=== PATIENT | male | born 1950 | race Caucasian/White ===

== ENCOUNTER 2018-11-15 07:40 | Inpatient (IN) | payer MEDICARE ==
[~2018-11-15] VITALS: Ht 165.1 cm; Wt 59.0 kg
--- NOTE | 2018-11-15 12:40 | NUR ---
PT ADMITTED FROM ED FOR CHOLECYSTITIS AND PANCREATITIS. PT HAS SON (POA) AND DAUGHTER AT BEDSIDE AT THIS TIME. PT STATES THAT HE IS HAVING RUQ PAIN 8/10. PT DECLINES NAUSEA/VOMITING AT THIS TIME. MOUTH SWABS AND ICE CHIPS PROVIDED FOR COMFORT, NPO. IV FLUIDS HANGING. PT HAS ACTIVE BOWEL SOUNDS BUT TENDER TO THE TOUCH ON THE RUQ AND RLQ. IN ROOM DISCUSSING PLAN OF CARE. PT HAS NO NEEDS/CONCERNS AT THIS TIME.
--- NOTE | 2018-11-15 13:53 | NUR ---
PT CALLED IN 10\10 PAIN. ADMINISTERED 4MG IV MORPH. INSTRUCTED TO CALL IN 10-15 MINUTES IF IT HASNT TAKEN THE PAIN LEVEL DOWN. FAMILY IN ROOM. EKG IN PROGRESS.
--- NOTE | 2018-11-15 14:55 | NUR ---
PT STATES THAT HE IS HAVING 9/10 PAIN AND WOULD LIKE MORPHINE. MORPHINE PROVIDED. PT SON AT BEDSIDE. PT ALERT AND ORIENTED X3. NO FURTHER NEEDS/CONCERNS AT THIS TIME. CALL LIGHT WITHIN REACH.
--- NOTE | 2018-11-15 15:29 | NUR ---
PT CALLED AND STATED THE MORPH DID NOT DO ANYTHING THIS LAST TIME. ADMINISTERED 6MG AGAIN. WILL SEE IF AFTER A COUPLE OF DOSES IT COMES DOWN. WILL CALL DR IF IT DOES NOT.
--- NOTE | 2018-11-15 16:15 | NUR ---
PT STATES THAT HIS PAIN HAS DECREASED, WILL LET NURSE KNOW IF PAIN INCREASES. EDUCATED PT ON CALLING STAFF TO MEASURE URINE. PT STATES AN UNDERSTANDING. PT RESTING IN BED WITH SON AT BEDSIDE. NO NEEDS/CONCERNS AT THIS TIME. CALL LIGHT WITHIN REACH.
--- NOTE | 2018-11-15 16:29 | EKG ---
[facility] [address] [facility] [place] [address] Signed Sinus rhythm with premature supraventricular complexes Low voltage QRS Prolonged QT Abnormal ECG No previous ECGs available Confirmed by ROSEY FRANCOIS MD ([id number]) on 11/15/2018 4:29:13 PM Electronically Signed By: ROSEY FRANCOIS MD 11/15/18 1629 PATIENT NAME: SKY ADAMSON LARISA Electrocardiogram DATE OF : 46 PHYSICIAN: ROSEY FRANCOIS MD REPORT #: [id number] REPORT IS CONFIDENTIAL AND NOT TO BE RELEASED WITHOUT AUTHORIZATION
--- NOTE | 2018-11-15 17:43 | NUR ---
ANSWERED PT CALL LIGHT. PT STATES THAT HIS PAIN IS AN 8/10. 6MG OF MORPHINE ADMINISTERED. DR. LEBLANC NOTIFIED OF MORPHINE NOT BEING EFFECTIVE. NO NEW ORDERS AT THIS TIME. PT RESTING QUIETLY WITH DAUGHTER AND EX- AT BEDSIDE.
--- NOTE | 2018-11-15 18:34 | NUR ---
PT SAT ON THE SIDE OF THE BED USING A URINAL. PT URINATED 150ML OF DARK YELLOW URINE. PT HAS NO OTHER NEEDS/CONCERS AT THIS TIME. CALL LIGHT WITHIN REACH. PT REPOSITIONED IN BED.
--- NOTE | 2018-11-15 19:42 | NUR ---
pt medicated with Morphine 6mg IV c/o abd pain 11/29 RUQ. Sats 82% on room air, O2 2L NC applied, up to 92% after a few minutes. staying at 91-93% after having o2 and cdb. will continue to observe. family in room
--- NOTE | 2018-11-15 20:59 | NUR ---
Dr Hayden notified personally about above note. new orders received. Pt drowsy, resting, eys closed, cpox in place, sats 92% on room air
--- NOTE | 2018-11-15 21:39 | NUR ---
EQUIPMENT OPERAT0R MORPHINE STARTED, PT AND DAUGHTER INSTRUCTED ON USAGE. AND THAT THE PATIENT IS THE DO WHO SHOULD BE PUSHING THE PAIN MED BUTTON. BOTH STATED UNDERSTANDING. PT COOP WITH ASSESSMENT. JAUNDICED SKIN, C/O ABD PAIN. TENDER TO TOUCH. IVF INFUSING W/O RPOBLEMS, NO C/O ADVERSE REACTION TO ABX. O2 2L NC, CPOX IN PLACE 2L/NC IN PLACE, SATS 93%. CONTINUES ON NPO STATUS. CALL LIGHT AT HANDS REACH. FAMILY IN ROOM
--- NOTE | 2018-11-15 22:41 | NUR ---
Medicated with Dilaudid 0.5mg IV per abd pain/generalized pain.
--- NOTE | 2018-11-15 23:05 | NUR ---
reposition patient up in bed.
--- NOTE | 2018-11-16 00:52 | NUR ---
RESTING, NO DISTRESS, CPOX IN PLACE, 93%, O2 2L NC IN PLACE, SECURITY GUARDS DISPATCHER INFUSING W GOOD PAIN CONTROL. ON CIWA, OBSERVE FOR S/SX ETOH WITHDRAWAL. GETS VALIUM TID CALL LIGHT AT BEDSIDE, FAMILY IN ROOM
--- NOTE | 2018-11-16 02:45 | NUR ---
pt dry heaving, visible tremors present, medicated with Zofran 8mg IV. Pt up to br, unsteady gait, follows instructions after several cues. skin jaundiced, unmeasurable void of clear urine. Back to bed. O2 2L on, CPOx in place, sats 96%. Bed alarm on, cll light at bedside, NPO,CIWA score 7. family rooming in
--- NOTE | 2018-11-16 03:42 | NUR ---
PULLED PATIENT UP IN BED REPOSITIONED
--- NOTE | 2018-11-16 03:46 | NUR ---
REPOSITIONED IN BED, NO FURTHER C/O DRY HEAVINH, NO VISIBLE TREMORS NOTED, STILL ANXIOUS, USING VERMIN EXTERMINATOR MORPHINE WITH FAIR ABD PAIN RESULTS. BED ALARM ON, CALL LIGHT AT BEDSIDE, DAUGHTER IN ROOM
--- NOTE | 2018-11-16 05:52 | NUR ---
PT CURRENTLY SANDRA, RESINT, NO DISTRESS, NO AGITATION, NO TREMORS. CIWA SCORE AT THIS TIME 2. PT RECEIVED SCHEDULE 2.5MG IV VALIUM. NO N/V, RECEIVED ZOFRAN 8MG IV EARLIER WITH FAIR RELIEF, NO EMESIS. CONTINUES TO C.O ABD PAIN, HAS MORPHINE PROCESS EXCELLENCE MANAGER WITH GOOD TO FAIR RESULTS. NO C/O ADVERSE REACTION TO ABX IV. WAS INCONTINENT OF URINE X1 AND USES URINAL SEVERL TIMES, VOIDING QS THIS SHIFT. IS NPO WITH MOUTH CARE DONE. HAS BEEN COOPERATIVE, CALM AT THIS TIME BUT VERY ANXIOUS, CONFUSED AND RESTLESS MID SHIFT AFTER RECEIVING VALIUM. CALMER AT THIS TIME, ORIENTED TO PLACE, SELF AND SITUATION. MOVES AROUND IN BED, HAS O2 2L NC HIS SAT DROPPED LAST NIGHT, CPOX IN PLACE WITH SATS AT 92-95%, NO RESP DISTRESS, FAMILY IN ROOM
--- NOTE | 2018-11-16 07:33 | NUR ---
0700: Bedside report recieved from Gloria PAVON. Pt laying in bed and apprears comfortable at this time, and he denies any new problems. Call asencio within reach. Pt's daughter in the room.
--- NOTE | 2018-11-16 08:40 | NUR ---
LAB RESULTS WILL BE CALLED TO DR LEBLANC.
--- NOTE | 2018-11-16 08:43 | NUR ---
PT RESTING IN BED AND HAD STATED HIS PAIN WAS A 9 AND HE PUSHED HIS COMMERCIAL AGENT BUTTON. HE NOW STATES HIS IMPROVING. HE DENIES ANY OTHER NEW PROBLEMS. HIS CURRENT CIWA SCORE IS A 0, [facility] PT INSTRUCTED TO CALL BEFORE GETTING OUT OF BED AND THE PT'S DAUGHTER IS IN THE ROOM AND STATES SHE WILL ALSO CALL OF ANY SIGNS OF AN INCREASING CIWA SCORE.
--- NOTE | 2018-11-16 08:57 | NUR ---
DR FRANCOIS CAME INTO THE PT'S ROOM AND SAW THE PT SHE IS AWARE OF THE PT'S LABS AND STATES THAT THERE IS NO NEED TO CALL DR LEBLANC IN THIS REGARD.
--- NOTE | 2018-11-16 09:54 | NUR ---
Pt up ambulating in the halls with physical therapy at this time. Pt voided 150 ml of dark yellow urine prior to his walk.
--- NOTE | 2018-11-16 10:14 | NUR ---
PT STATES HIS PAIN IS UNDER CONTROL AND THAT HE IS GETTING "A LITTLE TIRED NOW".
--- NOTE | 2018-11-16 11:15 | NUR ---
Pt ambulating in the halls with the GRAVURE PRESS OPERATOR at this time.
--- NOTE | 2018-11-16 11:52 | NUR ---
PATIENT WAS ABLE TO SHOWER ON HIS OWN. AGENCY RECRUITER STOOD OUTSIDE DOOR INCASE PATIENT WAS IN NEED OF ASSISTANCE. HE IS NOW SITTING IN CHAIR. PATIENT ALSO WALK A LAP AROUND MED/SURG.
--- NOTE | 2018-11-16 12:25 | NUR ---
PT RESTING IN HIS CHAIR VISITING WITH HIS FAMILY. HE STATES HE IS DOING WELL AND DENIES PAIN. SAT IS 96% ON 2L VIA NC. CIWA IS A 0 AT THIS TIME.
--- NOTE | 2018-11-16 15:54 | NUR ---
Pt resting in his bed visiting with his family and he denies any pain or problems.
--- NOTE | 2018-11-16 17:34 | NUR ---
PT STATES HE HAS ABD PAIN RATED AT AN 8-9/10, PT PUSHED IS MS ACUPRESSURIST AT THIS TIME. DR LEBLANC ARRIVED TO THE PT'S ROOM AND IS SPEAKING WITH HIM AND HIS FAMILY AT THIS TIME.
--- NOTE | 2018-11-16 17:37 | NUR ---
PT HAS NOT VOIDED FOR THE LAST 4 HOURS, DR LEBLANC NOTIFIED AND NEW ORDERS RECIEVED.
--- NOTE | 2018-11-16 18:36 | NUR ---
PT LYING IN HIS BED AND IS USING HIS CARRY OUT CLERK WITH MS FOR ABD PAIN. THE PLAN IS TO CONTINUE TO TREAT HIS PANCREATITIS WITH FLUIDS AND ABX UNTIL UNDER CONTROL ENOUGH FOR HIM TO HAVE HIS GALLBLADDER OUT. HIS URINE IS VERY DARK AND HIS BILIRUBIN IS ELEVATED. HIS URINE OUTPUT HAS BEEN LOW AND HE IS CURRENTLY RECEIVING A FLUID BOLUS DUE TO THIS. PT HAS A HISTORY OF ETOH AND IS RECEIVING ETOH WITHDRAW ASSESSMENTS AND SCHEDULED VALIUM DOSES AND HE HAS PRN DOSES WHICH HAVE NOT BEEN NEEDED THIS SHIFT. ANABELLA HAS BEEN IN THE ROOM WITH THE PT ALL DAY. PT NPO OTHER THAN PRN ICE CHIPS.
--- NOTE | 2018-11-16 18:44 | NUR ---
FLUID BOLUS COMPLETED, PT TOLERATED IT WELL.
--- NOTE | 2018-11-16 18:45 | NUR ---
SAT IS 93% on 2l NC at this time.
--- NOTE | 2018-11-16 19:00 | NUR ---
SHIFT REPORT RECEIVED FROM GHULAM BROWN AT BEDSIDE. PT IN BED AND AWAKE. RR WNL, PT ON 2LNC, CPOX IN PLACE. O2 SAT AND HR WNL. MORPHINE REGISTERED NURSE POST PARTUM PUMP IN PLACE, SETTINGS PER MD ORDERS. IV FLUIDS INFUSING PER MD ORDERS, IV SITE WNL. PT DENIES NEEDS, CALL LIGHT IN REACH.
--- NOTE | 2018-11-16 19:45 | NUR ---
CHARGE NURSE ROUNDING NOTE: DAUGHTER CONCERNED THAT PT IS CONFUSED. PT ALERT AND ORIENTED, BETTER AFFECT AND OUTLOOK THAN YESTERDAY, SKIN STILL JAUNDICED. PT NPO. PT AWARE OF AND ANSWERED QUESTIONS CORRECTLY R/T CURRENT PRESIDENT, PLACE, SITUATION, DATE OF ADMISSION, DAY, DATE, MONTH, STATE GOVERNOR, DOCOT[place], TOWN. HELPED TO STAND BY BED WHILE HE USES A URINAL, VOIDING DARK RUBI/ORANGE COLORED URINE, UNSTEADY, SOB WITH EXERTION NOTED. ON 2L/NC, CPOX 87%, PULSE 105, RESP 20. BACK TO BED, SATS UP TO 91 AFTER RETURNING TO BED, HOB ELEVATED TO COMFORT. NPO X ICE CHIPS, TOLERATING WELL, NO C/O N/V. IVF INFUSING. PT BEING OBSERVED FOR ETOH S/SX WITHDRAWAL, CALM, ORIENTED, SKIN DRY, NO TREMORS NOTED. PRIMARY RN TO BE NOTIFIED
--- NOTE | 2018-11-16 21:15 | NUR ---
SPOKE TO DR LEBLANC REGARDING PT'S 3.2 POTASSIUM LEVEL. NEW TELEPHONE ORDERS READ BACK FOR 30 MEQ OF POTASSIUM TO BE RUN OVER 2 HOURS X2 FOR A TOTAL OF 60 MEQ OF POTASSIUM. IF UNABLE TO GIVE THIS DOSE, THEN GIVE 20 MEQ OF POTASSIUM OVER 2 HOURS X3 FOR TOTAL DOSE OF 60 MEQ. OKAY TO ADD LIDOCAINE PER DR LEBLANC. ORDERS PUT IN BY CHECK PILOT FLORA.
--- NOTE | 2018-11-16 21:52 | NUR ---
PER DR ALESSANDRO LEBLANC WAS NOTIFIED OF PTS K+LEVEL OF 3.2 BY whitney NARAYAN RN. NEW ORDERS FOR 3 DOSES OF k+ RIDER OF 20MEQ X3 DOSES/ OR 30MEQ OVER 2 HRS X 2 DOSES FOR A TOTAL OF 60MEQ IV. OK TO ADD LIDOCAINE.
--- NOTE | 2018-11-16 22:00 | NUR ---
ASSESSMENT COMPLETE, SCHEDULED MEDICATIONS ADMINISTERED (SEE EMAR). PT RESTING IN BED, DROWSY, AWAKENS EASILY FOR ASSESSMENT. CPOX IN PLACE, PT ON 2LNC, O2 SAT AND HR WNL. MORPHINE STEAM PRESS OPERATOR PUMP IN REACH, SETTINGS PER MD ORDERS. IV FLUIDS INFUSING PER MD ORDERS, IV SITE WNL. PT A/OX4, DENIES NAUSEA.
--- NOTE | 2018-11-16 22:59 | NUR ---
first dose of potassium rider 20meq started,
--- NOTE | 2018-11-17 02:24 | NUR ---
cpox alarm going off, this rn in room to assess pt. this rn found nc off of pt, o2 sat in 70's. nc placed on pt, titrated to 3lnc. pt instructed to purse lip breath, pt verbalized understanding and followed commands approperiately. o2 sat maintaining 90% on 3lnc. will monitor. no further needs, call light in reach.
--- NOTE | 2018-11-17 04:40 | NUR ---
FLARER MORPHINE CARTRIDGE REPLACED BY THIS RN. DOSAGE VERIFIED BY SECOND RN GUANAKITO. 17 MG CLEARED FROM PUMP. 17 MG IS FROM BEGINNING OF DAYSHIFT ON 11/16/18 TO THIS TIME. PT REPORTS 9/10 PAIN, PT WAS PREVIOUSLY SLEEPING BEFORE FLARER WAS REPLACED. NO FACIAL GRIMACING NOTED, RR WNL. ASSESSMENT COMPLETE, NO NEW CHANGES OR CONCERNS. PT A/OX4, 2-3LNC IN PLACE. CPOX, O2 SAT AND HR WNL. IV FLUIDS AND IV POTASSIUM INFUSING, IV SITE WNL. FRESH CUP OF ICE PROVIDED PER PT REQUEST, NO FURTHER NEEDS, CALL LIGHT IN REACH.
--- NOTE | 2018-11-17 05:23 | NUR ---
PT ON 2-3LNC, CPOX O2 SAT MAINTAINING UPPER 80'S. NEW O2 SAT PROBE TO LEFT HAND. RT IN ROOM TO ASSESS PT. PT REPOSITIONED IN BED, TITRATED TO 4LNC BY RT. O2 SAT NOW MAINTAINING AT 90%, WILL MONITOR. HR 99-103.
--- NOTE | 2018-11-17 05:42 | NUR ---
PT SLEPT ON AND OFF THIS SHIFT. FAMILY REPORTED INTERMITTENT FORGETFULNESS, WHEN ASSESSED BY THIS RN, PT IS A/OX4. PAIN CONTROLLED WITH RABBIT DRESSER MORPHINE PUMP. PT TITRATED FROM 2 TO 4LNC, CPOX IN PLACE. IV FLUIDS INFUSING PER MD ORDERS, IV SITE WNL. PT RECEIVED POTASSIUM RIDER FOR 3.2 POTASSIUM. SBA FOR AMBULATION, SCD'S IN PLACE.
--- NOTE | 2018-11-17 07:27 | NUR ---
BEDSIDE REPORT RECEIVED FROM MICHAEL PAVON. PT LYING IN BED AND HE DENIES ANY PROBLEMS AT THIS TIME. HE STATES HE IS JUST HOPEFULL THAT HE WILL BE ABLE TO HAVE HIS GALLBLADDER REMOVED TODAY. CALL HERNANDEZ WITHIN REACH, PT'S DAUGHTER SLEEPING ON THE COUCH.
--- NOTE | 2018-11-17 08:29 | NUR ---
PT RESTING IN HIS BED, HIS SON AND DAUGHTER ARE PRESENT. PT STATES HE HAS ABD PAIN WHICH IS ACCEPTABLE AND HE IS USING HIS MS ROOM SERVICE SUPERVISOR NEEDED. PT GIVEN AN IS AND INSTRUCTED IN IT'S USE. CALL HERNANDEZ WITHIN REACH.
--- NOTE | 2018-11-17 09:31 | NUR ---
PATIENT GIVEN SURGICAL WIPEDOWN UPON RN REQUEST. DAUGHTER IN ROOM. CALL LIGHT IN REACH. NO FURTHER NEEDS AT THIS TIME.
--- NOTE | 2018-11-17 10:39 | NUR ---
PT RESTING IN HIS BED WITH NO NEW COMPLAINTS AT THIS TIME.
--- NOTE | 2018-11-17 11:05 | NUR ---
1155; PT IS GONE FROM MED-SURG TO THE OR.
--- NOTE | 2018-11-17 13:12 | NUR ---
PT WILL BE GOING TO CCU FOLLOWING SURGERY, REPORT WAS CALLED TO KISHORE PAVON.
--- NOTE | 2018-11-17 13:43 | NUR ---
11/17/18 1343 Sheets,Jackie 1327 PT ARRIVED TO PACU ON 10L VIA SIMPLE MASK, ORAL AIRWAY IN PLACE. PT NONAROUSABLE TO PAINFUL STIMULI. O2 SAT 87%, HUMANITIES DEPARTMENT CHAIR DOING JAW TRUST, FERNANDO RN CONTINUES JAW THRUST. 1330 ORAL AIRWAY REMOVED, JAW THRUST CONTINUES AND PT REMAINS NONAROUSABLE. O2 SAT 88%. 1333 O2 MASK CHANGED TO 15L NO-REBREATHER. 1336 HOB INCREASED, O2 SAT 92%.
--- NOTE | 2018-11-17 14:20 | NUR ---
Pt arrived to unit from PACU. Pt opens eyes to touch on 10L NRB. VSS, MANJU drain draining serosanginous fluid, keane draining clear yellow urine. Pt placed on heart monitor and IV fluids started. Will continue to monitor
--- NOTE | 2018-11-17 15:35 | HP ---
[facility] [address], [place] [address] Signed ADMISSION DATE: 11/15/2018 REASON FOR ADMISSION: Gallstone pancreatitis, daily alcohol use, and biliary obstruction. HISTORY OF PRESENT ILLNESS: This 68-year-old white man, who looks far older than his stated age. He is admitted following evaluation in the emergency room for biliary obstruction, concurrent pancreatitis, and gallstones in the common duct. He is known to drink alcohol on a daily basis. He has had three days of increasing epigastric and right subcostal pain, nausea and vomiting and presented to the emergency room, where he was evaluated by Dr. Blankenship. Concern was maintained for possible cholecystitis and on that basis, a gallbladder ultrasound was obtained. This did show layering sludge and amorphous changes in the region of the jayro hepatis. A CT scan was then obtained, which showed marked intrahepatic biliary ductal dilatation. The gallbladder with layering sludge and common duct was dilated and probably with filling defects including possible stones. His amylase was noted to be greater than 2500 and although he has clinical pancreatitis, the pancreas does not look markedly inflamed at least on my evaluation. He is admitted for further evaluation and care. The patient has a complex past history of gastric ulcer surgery. From what I can gather, this was in the late 1970s in [place]. He does not recall the surgeon's name, though I did recount all of the surgeons of that area to him. It sounds as though he had a probable antrectomy with subsequent revision to a Moo-en-Y configuration due to reflux biliary and gastritis. In any case, the patient does drink alcohol on a daily basis, which he admits to only reluctantly, but affirmed by his two children. He is considered to have allergy to aspirin and tomatoes. He has no known home medications. The patient does smoke on a daily basis and drinks alcohol daily as well. SOCIAL HISTORY: He lives alone. 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 He has lived in [place]. Currently lives in [place] and has lived elsewhere including in [place]. REVIEW OF SYSTEMS: Electronically Signed By: VENESSA LEBLANC MD 11/17/18 1535 PATIENT NAME: SKY ADAMSON [facility] HISTORY AND PHYSICAL DATE OF : 46 REPORT #: [id number] PHYSICIAN: VENESSA LEBLANC MD PCP: XAVIER HORTON REPORT IS CONFIDENTIAL AND NOT TO BE RELEASED WITHOUT AUTHORIZATION [facility] [address], [place] [address] Signed He denies any shortness of breath. His abdominal pain is epigastric and in the posterior back as well. He denies any precordial chest pain. He has had no blood per rectum or hematemesis. PHYSICAL EXAMINATION: GENERAL: This is a white man, who does not look to be severely distressed by any means. He is unshaven. He appears far older than his age of 68 years actually. HEENT: His trachea is midline. Mucous membranes are markedly dry. CHEST: Shows diminished breath sounds bilaterally, but no wheeze or rhonchi. HEART: Regular. Abdomen is scaphoid and nondistended. There is mild tenderness in the epigastric and subcostal area. There is a long midline incision well healed. There is no sign of incisional hernia. EXTREMITIES: Show no clubbing, cyanosis, or edema. NEUROLOGIC EXAM: Shows him to be alert and oriented. He does not appear to have significant dementia that I can tell. LABORATORY STUDIES: Show urinalysis, which is normal. His white count is 8.1, hematocrit 34.5, platelets 216,000. Electrolytes show potassium 3.5. Sodium 130, creatinine 0.58, glucose is 155, total bilirubin 3.0, AST 79, ALT 71, alkaline phosphatase 526, albumin 2.8, lipase 2547. I have reviewed his images including CT scan and ultrasound. He has not gotten a chest x-ray. ASSESSMENT: The patient has pancreatitis clinically and gallstones and biliary ductal dilatation. He drinks alcohol on a daily basis, though it is probable that his pancreatitis is from biliary disease actually. He is not clinically jaundiced at this time. He does not have a pancreatic mass. Sludge is noted in the gallbladder and soft stones in distal common bile duct. Consideration has been made for possible distal biliary stricture. Moo-en-Y anatomy from the past is noted. This is from ulcer surgery not from obesity in the past. He is admitted at this time to undergo fluid resuscitation, parenteral pain medication, IV antibiotics, anticipating ultimately cholecystectomy and likely common duct exploration. His pancreatitis, I am hopeful an optimistic will improve rather than worsen. He is at risk of alcohol withdrawal syndrome based on his history and prophylaxis, in that regard were being appropriate. Electronically Signed By: VENESSA LEBLANC MD 11/17/18 1535 PATIENT NAME: SKY ADAMSON HISTORY AND PHYSICAL DATE OF : 46 REPORT #: [id number] PHYSICIAN: VENESSA LEBLANC MD PCP: XAVIER HORTON REPORT IS CONFIDENTIAL AND NOT TO BE RELEASED WITHOUT AUTHORIZATION [address] [address] Signed MD MIGUEL ANGEL Patton/MODL /[id number] cc: ADRIANA Dillon Dr. Copies: XAVIER HORTON ~ Electronically Signed By: VENESSA LEBLANC MD 11/17/18 1535 PATIENT NAME: SKY ADAMSON [facility] HISTORY AND PHYSICAL DATE OF : 46 REPORT #: [id number] PHYSICIAN: VENESSA LEBLANC MD PCP: XAVIER HORTON REPORT IS CONFIDENTIAL AND NOT TO BE RELEASED WITHOUT AUTHORIZATION
--- NOTE | 2018-11-17 16:00 | NUR ---
Reassessment unchanged from previous. pt remains drowsy from anesthesia,does respond to pain. Remains on 10L NRB, VSS at this time. Will continue to monitor
--- NOTE | 2018-11-17 17:53 | NUR ---
MORPHINE TECHNICAL HEALTHCARE CONSULTANT SET UP ON PT WITH EXISTING SYRINGE FROM PRIOR TO SURGERY. SAME SETTING VERIFIED AND 3MG CLEARED FROM PUMP.
--- NOTE | 2018-11-17 18:09 | NUR ---
Pt becoming more awake moving all 4 ext and answering simple questions. Pt on 6L NC and VSS at this time. Pt not complaining of pain Will continue to monitor
--- NOTE | 2018-11-17 19:30 | NUR ---
Patient is restful with eyes closed, breathing is even and unlabored, vitals WNL, FLACC score 0. Opens eyes to voice, quickly closes eyes again when not being stimulated. IVF infusing, call light within reach, daughter at bedside.
--- NOTE | 2018-11-17 20:01 | NUR ---
SAVANAH MONAE ASKED IF I COULD CHECK PATIENTS OUTPUT IN RESTREPO. HE WAS AT 125CC. PT WAS RESTING AND STAYED ASLEEP. DAUGHTER IN ROOM DID NOT NEED ANYTHING AT THIS TIME.
--- NOTE | 2018-11-17 20:45 | NUR ---
Patient restful with eyes closed, vitals WNL, breathing is unlabored. Assessment done, GCS 14, opens eyes to verbal stimuli, follows commands appropriately. HR and BP WNL, peripheral pulses well felt in all extremities, trace edema noted in BLE. Fine crackles in LLL of lungs, clear in all other brock, SpO2 94% on 4L O2. Abdomen has ascites, bowel tones hypoactive, tender to palpation, denies nausea. Mi in place, draining QS concentrated urine. Surgical dressings to abdomen CDI, no drainage noted, MANJU drain also intact, small amount of serosang. fluid noted. Patient is weak post-op, requires 2PA with repositioning in bed. With assistance from MARIAH Christiansen, patient repositioned for comfort, also education patient about pain control, told him that WAREHOUSE MANAGER is available, patient states pain in abdomen is 5/10, does not need pain medication at this time, FLACC score 1. Denies needs at this time, IVF infusing per order, call light within reach, daughter at bedside.
--- NOTE | 2018-11-17 21:51 | NUR ---
Patient is restless and states "I need to go pee." Educated about catheter and that urge to void is normal, confimred that catheter is draining, concentrated urine. Scheduled valum given, patient also states that he has pain in abdomen, however states "I don't need any pain medication right now." Placed USER EXPERIENCE MANAGER in reach of patient, educated patient to use when necessary. Also educated family to only allow patient to use pump. After valium admin, patient now resting with eyes closed, breathing is even and ulabored, appears restful. Call light within reach, daughter remains at bedside.
--- NOTE | 2018-11-17 22:33 | NUR ---
Dr. Hayden to bedside for patient evaluation, updated MD about patient's stable condition, vitals WNL, pain has been well controlled, minimal serosang. drainage from MANJU drain.
--- NOTE | 2018-11-17 23:19 | NUR ---
Resting with eyes closed, breathing is even and unlabored, vitals WNL, FLACC score 0. Call light within reach, IVF infusing, daughter at bedside.
--- NOTE | 2018-11-18 | NUR ---
Restful with eyes closed, breathing is even and unlabored, vitals WNL, FLACC score 0. Call light within reach, IVF infusing per order, daughter at bedside.
--- NOTE | 2018-11-18 01:26 | NUR ---
Patient is is restless, repositioned in bed. Reports abdominal pain, educated patient about TELECOM ENGINEER use, patient pushes TELECOM ENGINEER button, IV flushed, confirmed proper placement, brisk blood return noted. Assessment done, patient has crackles in LLL and RUL of lungs, clear in other brock, denies feeling SOB, SpO2 89% on 4L, increased to 5L O2, will continue to monitor. Small amount fo serosang. drainage from MANJU site insertion, rest of abdominal dressings are CDI. No other changes from previous assessment. Patient denies further needs at this time, call light within reach, daughter at bedside.
--- NOTE | 2018-11-18 01:42 | NUR ---
SpO2 down to 90% on 5L O2, encouraged to cough and deep breathe, educated about effects of not taking deep breathes, increases risk for pulmonary complications, patient states understanding. Denies further needs at this time, states that pain is improved after TECHNICAL SERVICES REPRESENTATIVE use. Call light within reach.
--- NOTE | 2018-11-18 04:00 | NUR ---
Assessment done, no acute changes from previous, continues to have crackles LLL, clear in all other brock, SpO2 90% on 5L O2 via oxymask, patient is taking shallow breaths, encouraging cough and deep breathing, also encouraging IS. GCS 15, follows commands appropriately. Encouraging IS/cough and deep breathe. Denies needs at this time, call light within reach.
--- NOTE | 2018-11-18 05:23 | NUR ---
After switching to 4L NC, patient's SpO2 remains 89 to 90%, had patient use IS, had minimal effort, patient states "I can't really take deep breathes because it hurts." Discussed TODDLER TEACHER with patient, patient is not interested in using TODDLER TEACHER, educated him on pain control and the importance of deep breathing. Administered IV tylenol PRN for pain control in attempt to help with deep breathing. Will continue to monitor and encourage patient.
--- NOTE | 2018-11-18 06:45 | NUR ---
Patient transfered to MS room 115 with assistance from SAVANAH Gatica, trasnfered on 5L O2, placed on tele.
--- NOTE | 2018-11-18 07:30 | NUR ---
PATIENT RESTING IN BED. DAUGHTER IN ROOM. ICE CHIPS GIVEN. CALL LIGHT WITHIN REACH. NO OTHER NEEDS AT THIS TIME
--- NOTE | 2018-11-18 09:25 | NUR ---
PT RESTING SUPINE IN BED, EYES CLOSED AND RESPIRATIONS EVEN AND UNLABORED, O2 SAT 90-92% ON 5LPNC. PT ALERT TO VOICE, ASSESSMENT COMPLETED. PT ASSISTED IN AMBULATING 1 FULL LAP AROUND NURSING STATIONS WITH FWW AND 1PA. PT TOLERATED WELL AND STATES PAIN IS TOELRABLE. PT ASSISTED BACK TO BED, O2 REMAINS ON 5LPNC PT AND PT CONTINUES TO SAT 90-92%. PT INSTRUCTED ON USE OF IS 10X PER HOUR WHILE AWAKE AND OF IMPORTANCE OF AMBULATING QID/ HE CAN TOLERATE. PT AGREES TO USE CALL LIGHT FOR ASSISTANCE. CALL LIGHT AND ICE CHIPS AT BEDSIDE. RESTREPO DRAINING CLEAR YELLOW URINE. WARM BLANKET, ICE PACK AND FRESH ICE CHIPS PROVIDED PER PT REQUEST. PT DENIES FURTHER NEEDS/CONCERNS.
--- NOTE | 2018-11-18 09:54 | NUR ---
PATIENT RESTING IN BED. RN AND DAUGHTER IN ROOM. VITAL SIGNS AND I&O DONE. CALL LIGHT WITHIN REACH. NO OTHER NEEDS AT THIS TIME
--- NOTE | 2018-11-18 11:38 | NUR ---
CALL LIGHT ANSWERED. PATIENT ASKS FOR WARM BLANKETS. PATIENT RESTING IN BED. DAUGHTER IN ROOM. WARM BLANKETS PROVIDED. CALL LIGHT WITHIN REACH. NO OTHER NEEDS AT THIS TIME
--- NOTE | 2018-11-18 12:58 | NUR ---
10CC STERILE WATER REMOVED FROM BALLOON AND RESTREPO CATH REMOVED AT THIS TIME. PT TOLERATED WELL THOUGH THERE WAS SOME SLIGHT RESISTANCE WITH REMOVAL THAT APPEARED TO BE IMPROVED WITH CHANGE IN POSITION. PT DID HAVE SCANT AMOUNT OF PURULENT AND BLOODY DISCHARGE TO URETHRA. RUTH LEMUS IN TO ASSIST PT WITH CLEANING UP AND CHANGING GOWN. URINAL IN REACH. PT ALSO PROVIDED WITH WARM CHICKEN BROTH AND JELLO PER HIS REQUEST.
--- NOTE | 2018-11-18 13:10 | NUR ---
PATIENT SITTING UP IN CHAIR. DAUGHTER AND RN IN ROOM. VITAL SIGNS AND I&O DONE. GOWN CHANGED. CALL LIGHT WITHIN REACH. NO OTHER NEEDS AT THIS TIME
--- NOTE | 2018-11-18 15:03 | NUR ---
PT SITTING UP IN CHAIR, VISITING WITH FAMILY, DENIES NEEDS/CONCERNS AND APPEARS TO BE IN NO ACUTE DISTRESS. PT REMAINS ON 5LITERS OF HUMIDIFIED O2 SATS IN LOW 90'S. PT DENIES PAIN NAUSEA OR OTHER SYMPTOMS AT REST.
--- NOTE | 2018-11-18 18:38 | NUR ---
PATIENT AND I WALKED 1 AND HALF LAPS AROUND MED SURG.
--- NOTE | 2018-11-18 19:17 | NUR ---
RECEIVED REPORT FROM SAVANAH PULLIAM. FAMILY AT BEDSIDE. pt RESTING. NO REQUESTS AT THIS TIME. WHITEBOARD UPDATED. CALL LIGHT WITHIN REACH.
--- NOTE | 2018-11-18 19:24 | NUR ---
PT RESTING SUPINE IN BED, URINE OUTPUT HAS BEEN LOW PT AGREES TO ATTEMPT TO VOID ADN VOIDS 60MLS CLEAR YELLOW URINE AT THIS TIME. BLADDER SCAN SHOWS NO RESIDUAL URINE. PT ENCOURAGED TO DRINK MORE FLUIDS. PT REPORTS THAT HE DOES NOT LIKE ICE IN HIS FLUIDS SO IN FUTURE WOULD LIKE NO ICE IN HIS DRINKS. DR LEBLANC NOTIFIED OF LOW URINE OUTPUT. NEW ORDER RECEIVED TO INCREASE MAINTENANCE FLUIDS TO 125ML/HR. NO FURTHER ORDERS AT THIS TIME.
--- NOTE | 2018-11-18 20:24 | NUR ---
VS and I&Os complete. Son by bed side and neither pt or son needed anything at this time. Bed alarm set.
--- NOTE | 2018-11-18 21:45 | NUR ---
ASSESSMENT AND MEDICATIONS DUE. ASSESSMENT DONE. DRESSINGS HAVE A SMALL AMOUNT OF OLD SHADOWING. MANJU DRAIN HAS SEROUS FLUID. pt RATED PAIN 9/10, EDUCATED ON USING RN EMBEDDED, pt USED BUTTON. SON AT BEDSIDE. pt REPOSITIONED TO INCREASE SATS, ON 5L HUMIDIFIED O2 VIA NC. CALL LIGHT WITHIN REACH. NO REQUESTS AT THIS TIME.
--- NOTE | 2018-11-18 22:34 | NUR ---
CALL LIGHT ON. pt UP TO TOILET WITH SAVANAH WOLFF ASSISTING.
--- NOTE | 2018-11-19 00:59 | NUR ---
IV PUMP BEEPING. pt RESTLESS, UP TO TOILET AND BACK TO BED. HAD TROUBLE FOLLOWING INSTRUCTIONS. O2 SAT 84% AFTER AMBULATION, REPOSITIONED WITH ASSISTANCE, ENCOURAGED pt TO USE CABLE REPAIRER BUTTON FOR PAIN WHICH HE DID. 02 SAT 90%. CALL LIGHT WITHIN REACH. O2 5L VIA NC. SON AT BEDSIDE.
--- NOTE | 2018-11-19 02:51 | NUR ---
ROUNDED ON pt. RESTING WITH EYES CLOSED, RESPIRATIONS REGULAR AND UNLABORED. O2 VIA NC IN PLACE. CALL LIGHT WITHIN REACH. SON AT BEDSIDE.
--- NOTE | 2018-11-19 03:36 | NUR ---
CPOX ALARMING. SON AT BEDSIDE. pt LAYING IN BED. ENCOURAGED DEEP BREATHING. PER SON pt HAD TAKEN OXYGEN OFF. O2 AT 5L VIA NC. O2 SAT QUICKLY INCREASED. ASSESSMENT DONE. pt REPORTED 8/10 PAIN, STEAMFITTER SUPERVISOR USED WITH ENCOURAGEMENT. CALL LIGHT WITHIN REACH.
--- NOTE | 2018-11-19 04:04 | NUR ---
CALL LIGHT ON pt UP TO TOILET AND BACK TO BED. MANJU DRAIN OUTPUT YELLOW, DRAIN SITE REINFORCED WITH ABD AND TAPE. CALL LIGHT WITHIN REACH. EVENT SPECIALIST BUTTON IN HAND.
--- NOTE | 2018-11-19 05:00 | NUR ---
pt RESTED ON AND OFF DURING SHIFT. ON 5L HUMIDIFIED O2 VIA NC. HAS NOT NEEDED VALIUM. IVF INFUSING. NPO WITH ICE CHIPS. 1-2PA FWW. MORPHINE SECURITY MANAGER. SON AT BEDSIDE ALL NIGHT.
--- NOTE | 2018-11-19 06:10 | NUR ---
ASSISTED PATIENT TO THE BATHROOM. PATIENT AMBULATED WITH SBA, REQUIRED DIRECTIONS OF PROPER WALKER USE. PATIENT WENT TO THE RECLINER. FAMILY IN ROOM. PATIENT ON 5L NC, DESATS WITH AMBULATION. DOES NOT APPEAR SOB. FAMILY AND PATIENT DENY NEEDS.
--- NOTE | 2018-11-19 07:20 | NUR ---
PT RESTING SUPINE IN BED ALERT ADN DENIES SOB, PAIN OR NASUEA. RR14. REPORT RECEIVED FROM WEB MARKETING ASSISTANT RN. PT DENIES NEEDS/CONCERNS. FAMILY AT BEDSIDE.
--- NOTE | 2018-11-19 09:08 | NUR ---
PT SITTING UP IN CHAIR SATTING 96% ON 5.5LPNC OF HUMIDIFIED O2. PT DENIES SOB PAIN OR NAUSEA. PT ASSESSMENT COMPLETED. CALL LIGHT AND H2O IN REACH. FAMILY AT BEDSIDE. PT EATING CLEAR LIQUID TRAY. PT DENIES NEEDS/CONCERNS.
--- NOTE | 2018-11-19 11:30 | NUR ---
PT RESTING IN SEMI FOWLERS POSITION IN BED ALERT AND ASSISTED UP AND AMBULATES 1/2 A LAP AROUND NURSING STATION AND BACK TO BED WITH 1PA AND FWW. PT BACK TO 5.5LPNC SPO2 RECONECTED AND PT SATTING IN LOW 90'S. CALL LIGHT AND H2O IN REACH. PT REPORTS SOME PAIN AND PRESSES FLAT FOLDING MACHINE OPERATOR BUTTON. PT DENIES FURTHER NEEDS/CONCERNS AT THIS TIME.
--- NOTE | 2018-11-19 12:10 | NUR ---
IV PUMP BEEPING AND NEW BAG HUNG AND INFUSING AT PRESCRIBED RATE -SEE EMAR. CALL LIGTH AND H2O IN REACH. PT DENIES NEEDS/CONCERNS. PT SATTING AT 91% ON 5.5LPNC AND DENIES SOB WITH RR14.
--- NOTE | 2018-11-19 13:09 | NUR ---
AMBULATED IN HALLWAY WITH PATIENT, 1PA FWW. PATIENT NOW BACK TO BED, DAUGHTER IN ROOM. CALL LIGHT IN REACH. NO FURTHER NEEDS AT THIS TIME.
--- NOTE | 2018-11-19 13:33 | OR ---
[facility] [address], [place] [address] Signed DATE OF OPERATION: 11/17/2018 SURGEON: Venessa Leblanc MD PREOPERATIVE DIAGNOSES: 1. Gallstone pancreatitis, probable common bile duct stones, probable acute calculous cholecystitis. 2. History of peptic ulcer surgery with revision (likely antrectomy with Billroth I anastomosis converted to Moo-en-Y anastomosis, uncertain. 3. Multiple medical problems including chronic alcohol use and cardiovascular disease. POSTOPERATIVE DIAGNOSES: 1. Profound infrahepatic adhesions and small bowel loops, uncertain anatomy, inability to dissect free to identify gallbladder. 2. Intraperitoneal inflammatory fluid including bile staining. 3. Fatty liver without nodular changes. PROCEDURES: 1. Laparoscopy. 2. Conversion to right subcostal laparotomy. 3. Lysis of adhesions. 4. Peritoneal cavity lavage with culture. 5. Placement of Miguel drain in the subhepatic space. 6. Bioptigen liver biopsy, right lobe of liver. ANESTHESIA: General endotracheal, Venessa Alston CRNA and local 10 mL of 0.25% Marcaine with epinephrine. INDICATION: This 68-year-old relatively thin white man presented to the emergency room on November 15 with significant upper abdominal pain. He has numerous medical comorbidities including long-standing daily alcohol use and prior history of gastric surgery or peptic surgery of some sort. The best I can tell antrectomy with conversion to Moo-en-Y gastrojejunostomy over time. This was all done in an area at this hospital without availability of any remaining surgical reports or operative reports of any kind. He presented to the emergency room with epigastric and right subcostal pain, nausea and vomiting, found on CT scan to have marked intrahepatic biliary ductal dilatation, gallbladder with layering sludge and common duct dilated and probably filled with Electronically Signed By: VENESSA LEBLANC MD 11/19/18 1333 PATIENT NAME: SKY ADAMSON OPERATIVE REPORT DATE OF : 46 REPORT #: [id number] PHYSICIAN: VENESSA LEBLANC MD PCP: XAVIER HORTON REPORT IS CONFIDENTIAL AND NOT TO BE RELEASED WITHOUT AUTHORIZATION [facility] [address], [place] [address] Signed stones. His amylase was greater than 2500. His liver enzymes were elevated and bilirubin was elevated. He was considered likely to have gallstone pancreatitis and possible concordant acute cholecystitis. He has been given intravenous antibiotics, bowel rest, parental pain medication, and so forth and his liver enzymes and other enzymes have improved. His alkaline phosphatase at one time was 434 and now 303. His lipase now only 58. Bilirubin previously 4.4, now 2.7. His white count is 12.3 (improved). His hematocrit is 30.2 and platelets 189,000. Medical consultation has been undertaken with Dr. Iglesias and alcohol prophylaxis measures undertaken. He has had no evidence of alcohol withdrawal syndrome. He is admitted at this time since his symptoms are improving to undergo laparoscopic cholecystectomy if possible and possible common duct exploration, possibly laparoscopic or possibly open depending on findings. He understands as does his daughter and son and the risks of bleeding, infection, need for open procedure, common duct injury, and failure to cure or improve his symptoms. Understanding this, he wished to proceed. FINDINGS: On laparoscopy, the abdomen was able to be entered through a Aniyah cannula technique. A long midline laparotomy incision from the past was noted. There were dense adhesions of abdominal viscera in the subhepatic space in the right side. The liver on the dome was completely freed. He had no macronodular cirrhotic changes, but did have fatty infiltration and enlarged liver. Bile-stained fluid was noted over the liver. Conversion to open laparotomy was required. Upon open operation, there was complete fusion of soft tissue in the area of the right subhepatic space. Meticulous dissection was undertaken freeing adhesions and so forth and identifying small bowel loops as well as the right transverse colon. The intensity of the adhesions and so forth and lack of ability to create a window to the gallbladder itself precluded safe further dissection and management was changed to peritoneal lavage, culture, placement of drain, and avoidance of a cholecystectomy in the face of such adverse anatomy. Meticulous care was maintained to avoid injury so as to avoid fistula or other problem. It is uncertain if the small bowel loop in the subhepatic space was that of the Moo limb, but I suspect that it was. DESCRIPTION OF PROCEDURE: The patient was brought to the operating room, given a general endotracheal anesthetic. Preoperative antibiotic Ancef was given. Sequential compression device stockings were being used as was heparin subcutaneously administered. A Mi catheter was placed. The abdomen, which was not obese, was prepared with chlorhexidine solution and draped sterilely. A long midline incision was noted extending below the umbilicus itself. An Electronically Signed By: VENESSA LEBLANC MD 11/19/18 1333 PATIENT NAME: SKY ADAMSON [facility] OPER[facility] REPORT DATE OF : 46 REPORT #: [id number] PHYSICIAN: VENESSA LEBLANC MD PCP: XAVIER HORTON REPORT IS CONFIDENTIAL AND NOT TO BE RELEASED WITHOUT AUTHORIZATION [address] [address] Signed infraumbilical incision was made and using an open Aniyah cannula technique, the abdomen was entered and pneumoperitoneum achieved to a level of 14 mmHg of carbon dioxide gas. Introduction of 30-degree scope showed no sign of carcinomatosis. It did have some inflammatory ascites fluid. Over the dome of the liver, there was some greenish fluid. No sign of sae purulence. He had no sign of nodular cirrhosis in any way. There were dense adhesions in the central aspect of the abdomen extending up to and including the subhepatic space. Clearly, a laparoscopic approach would not be possible and on that basis, conversion to open operation was undertaken. Laparoscopic was removed and the infraumbilical fascial edges were reapproximated with interrupted 0 Vicryl suture. A right standard subcostal incision was made. The rectus muscle was relatively thin, but was divided individually after incising the anterior rectus sheath and subsequently the posterior rectus sheath and the peritoneum. The abdomen was entered and some relatively clear ascites fluid identified. Directly in access to the right subcostal area, there was an enlarged liver with fatty infiltration and blunted edge. No doubt this was related to his ongoing alcohol use. There was complete fusion of the soft tissue in the inferior margin of the right lobe of the liver. Palpation medially and elsewhere showed dense omental adhesions in this area. The fascia inferiorly was freed with sharp dissection with all due care allowing for window and creation of digital planes to identify first small bowel loops, which appeared to be fused in the subhepatic space as well as the right transverse colon. A Bookwalter retractor was affixed to the table. The liver edge itself was freed from the small bowel segment using sharp dissection as much as possible. It appeared to be completely fused deeply in this area as well. A lateral approach allowed for digital examination in the subhepatic space, but the gallbladder itself was not visualized nor palpated there. After considerable amount of dissection and various angles of approach to at least identify the gallbladder itself, it was clear that his underlying problem would not be so easily managed by cholecystectomy and possible open common duct exploration. Indeed, alternative methods to alleviate his problem were strongly considered including possible need for ERCP or stenting, but the feasibility of open cholecystectomy let alone common duct exploration was likely far too hazardous to pursue any further. On that basis, peritoneal fluid was cultured and peritoneal area lavaged with sterile saline. Through a separate stab incision, a 7 mm flat Miguel drain was placed in the subhepatic space nestled behind the small bowel loop and in the area as close to the jayro hepatis as possible. Given his alcoholism and abnormal appearing liver, liver biopsy was deemed appropriate. Using a 14-gauge Bioptigen needle device, a single biopsy was taken of the right lobe of the liver. Specimen was passed for pathology. The puncture site was secured for hemostasis with electrocautery. Plans were then made for closure. Photographs were taken. The posterior sheath and its attendant peritoneum were reapproximated with running #1 PDS. Subsequently, the anterior rectus sheath similarly approximated. Subcutaneous tissue irrigated with Electronically Signed By: VENESSA LEBLANC MD 11/19/18 1333 PATIENT NAME: SKY ADAMSON OPERATIVE REPORT DATE OF : 46 REPORT #: [id number] PHYSICIAN: VENESSA LEBLANC MD PCP: XAVIER HORTON REPORT IS CONFIDENTIAL AND NOT TO BE RELEASED WITHOUT AUTHORIZATION [facility] [address] [place] [id number] Signed saline solution and skin closed with running subcuticular of 3-0 Vicryl. Steri-Strips were applied as was the Mepilex silver sponge dressing. Drainage in the Miguel drain showed only fluid and no evidence of bile and there is certainly no known enterotomy or other problem encountered. Venessa Leblanc MD /KISHANL /[id number] cc: ADRIANA Ribeiro MD Copies: XAVIER HORTON SHELDON MD ~ Electronically Signed By: VENESSA LEBLANC MD 11/19/18 1333 PATIENT NAME: SKY ADAMSON [facility] OPERATIVE REPORT DATE OF : 46 REPORT #: [id number] PHYSICIAN: VENESSA LEBLANC MD PCP: XAVIER HORTON REPORT IS CONFIDENTIAL AND NOT TO BE RELEASED WITHOUT AUTHORIZATION
--- NOTE | 2018-11-19 13:44 | NUR ---
PT RESTING IN SEMIFOWLERS POSITION IN BED, PT ALERT AND STATES HE IS COMFORTABLE AT THIS TIME. IV ABX INFUSING. ASSESSMENT COMPLETED. PT DENIES NEEDS/CONCERNS. H2O AND CALL LIGHT IN REACH.
--- NOTE | 2018-11-19 15:42 | NUR ---
Patient requested a shower and a shave, 1pa to ambulate to and from the rest room. fresh water given call light in reach, daughter in room with Patient.
--- NOTE | 2018-11-19 16:51 | NUR ---
PT RESTING SUPINE IN SEMI FOWLERS POSITION IN BED, ALERT TO VOICE, RR 16 O2 SAT 90% ON 5.5LPNC. IV K+ HUNG AND INFUSING -SEE EMAR. PT STATES PAIN IS TOLERABLE WITH HUSBANDRY TECHNICIAN MORPHINE. RR 12 EVEN AND UNLABORED. CALL LIGHT AND CLEAR LIQUIDS IN REACH. FAMILY AT BEDSIDE.
--- NOTE | 2018-11-19 18:26 | NUR ---
PATIENT REFUSES TO EAT . SAY HE IS NOT HUNGRY, NO FULID INTAKE AT ALL THIS EVENING . HE IS NOW EATTING HIS JELLO.
--- NOTE | 2018-11-19 19:05 | NUR ---
SHIFT REPORT RECEIVED AT BEDSIDE. PATIENT RESTING IN BED, FAMILY IN THE ROOM. PATIENT DENIES ANY NEEDS AT THIS TIME. APPEARS ALERT AND SMILES AT STAFF. FAMILY DENIES NEEDS. CALL LIGHT ON PATIENT'S LAP.
--- NOTE | 2018-11-19 21:30 | NUR ---
EVENING MEDS PROVIDED. PATIENT UP TO THE BATHROOM. 1PA W/FWW. PATIENT APPEARS VERY PAINFUL. SITTING ON TOILET WITH LABORED BREATHING AND EYES CLOSED TIGHTLY, HOLDING HIS RIGHT SIDE. PATIENT REPORTS PAIN. ENCOURAGED PATIENT TO PUSH TIMBER CRUISER BUTTON IF HE WAS HAVING PAIN, WHICH HE DID. ASSISTED PATIENT BACK TO BED. GAUZE COVERING MANJU SITE HAS MODERATE AMOUNT OF YELLOW DRAINAGE. REPLACED WITH ABD. MANJU EMPTIED. BRIGHT YELLOW CLEAR DRAINAGE NOTED. MEPILEX IN PLACE, MODERATE AMOUNT OF DRAINAGE ON RIGHT SIDE. ABD MODERATELY DISTENDED AND FIRM. TENDER TO TOUCH. BOWEL SOUNDS ACTIVE. NO NAUSEA. IV FLUIDS PER ORDER. PATIENT CONTINUES TO APPEAR PAINFUL. FAMILY AT BEDSIDE THEY REPORT POOR PAIN CONTROL TODAY. STATED "HE DOES OKAY IF HE DOESN'T MOVE BUT WHEN EVER HE IS MOVING IT'S BAD". NOTED THE PATIENT HAS NOT BEEN USING HIS TIMBER CRUISER REGULARLY, THIS 30MG VILE JUST FINISHED AND HAS BEEN IN FOR 39 HOURS. REPORTED PAIN CONCERNS TO , WHO WAS ON THE UNIT AND WENT IN TO SEE THE PATIENT. HE ALSO OBSERVED THE MANJU DRAINAGE COLOR. NEW ORDERS PLACED BY .
--- NOTE | 2018-11-19 22:00 | NUR ---
PRN TORADOL PROVIDED. PATIENT REPORTS ONGOING PAIN. FAMILY AT BEDSIDE. PATIENT DENIES FURTHER NEEDS.
--- NOTE | 2018-11-20 00:05 | NUR ---
SCHEDULED ABX STARTED. PATIENT SLEEPING SOUNDLY. RR 20. O2 SAT 97% ON 3L. TITRATED PATIENT TO 2L NC. CALL LIGHT IN REACH.
--- NOTE | 2018-11-20 00:36 | NUR ---
PATIENT UP TO THE BATHROOM. SBA W/FWW. PATIENT MOVES EASILY AND APPEARS LESS PAINFUL. WHEN ASKED IF HE WAS HAVING PAIN THE PATIENT SAYS "YEAH BUT I'M FEELING MUCH BETTER". PATIENT AMBULATED TO THE BATHROOM AND BACK TO BED WITHOUT OXYGEN. O2 SAT UPON RETURNING TO BED WAS 95% ON RA. PULSE OX CONTINUES TO BE IN PLACE, PATIENT TOLERATING RA. PATIENT'S RIGHT ARM APPEARS SLIGHTLY SWOLLEN AND DIFFICULT TO FLUSHED. MOVED IV FLUIDS TO LEFT AC IV AND ELEVATED RIGHT ARM ON PILLOW. LEFT IV SITE FOR NOW. PATIENT DENIES ANY NEEDS. FAMILY IN ROOM. CALL LIGHT IN REACH.
--- NOTE | 2018-11-20 03:29 | NUR ---
PATIENT UP TO THE BATHROOM. REPORTS PAIN 5/10. NO PRN PAIN MEDS AVAILABLE AT THIS TIME. PATIENT UNDERSTANDING OF THIS. DENIES WARM PACK OR ICE PACK. APPEARS COMFORTABLE RESTING IN BED. TOLERATING ROOM AIR. CALL LIGHT IN REACH.
--- NOTE | 2018-11-20 06:52 | NUR ---
LAB UNABLE TO DRAW PATIENT, 3 FAILED ATTEMPTS. 2 NURSES ATTEMPTED IV SITE, X4. NO SUCCESS. PATIENT HAS 1 PATENT IV SITE IN LEFT AC. SITE LEAKING. REDRESSED, SITE RETURNS BLOOD. MD AWARE OF POOR VASCULAR ACCESS AND FAILURE TO DRAW LABS. ORDERS FOR PICC CONSULT. PROPERTY CLERK AND ELECTRICAL SYSTEMS ENGINEER AWARE.
--- NOTE | 2018-11-20 06:55 | NUR ---
PATIENT'S NODULIZER DISCONTINUED. PRN TORADOL HAS PROVIDED PAIN RELIEF. PATIENT TITRATED TO ROOM AIR. VS STABLE, HR ELEVATED. DRESSING LEAKING RLQ AND AROUND MANJU SITE. MODERATE AMOUNT OF DRAINAGE NOTED, BRIGHT YELLOW IN COLOR. ABD FIRM, MODERATELY DISTENDED. BOWEL SOUNDS ACTIVE. NO NAUSEA. POOR APPETITE. POOR VASCULAR ACCESS, PICC LINE ORDERED THIS AM. UNABLE TO DRAW LABS. MD AWARE. SCHEDULED FOR MRPC AT 0800, MRI SCREENING TOOL ON CHART.
--- NOTE | 2018-11-20 07:46 | NUR ---
Pt sleeping at this time, resp even and non labored. Pt has no notable distress. Personal supplies and call light within reach.
--- NOTE | 2018-11-20 07:50 | NUR ---
PATIENT IN BED RESTING, FAMILY IN ROOM. PATIENT REFUSED TO GET UP TO CHAIR. CALL LIGHT IN REACH. NO FURTHER NEEDS AT THIS TIME.
--- NOTE | 2018-11-20 09:00 | NUR ---
RIGHT FA IV INTACT, FLUSHED WITH 5ML NS, PT REPORTED PAIN; IMMEDIATELY STOPPED FLUSHING IV LINE. IV TO BE REMOVED.
--- NOTE | 2018-11-20 09:14 | NUR ---
In to see pt. Pt requesting to not to walk at this time bc he is feeling "weak, tired and painful". recent toradol admin. Will review the chart to see alternative options for pain management. Pt has notable mottling to upper chest/left/right arms, more so pronounced to left arm. Skin is warm and dry. IV assessed and to left ac; postional but flushing well. Pt denies pain at site.
--- NOTE | 2018-11-20 10:00 | NUR ---
Per pt and family report, pt has baseline mottling in chest and arms, but "not as much" as he presents with this visit. Will continue to monitor.
--- NOTE | 2018-11-20 10:05 | NUR ---
PT WALKED IN HW 1PA WITH WALKER; TOLERATED WELL.
--- NOTE | 2018-11-20 11:16 | NUR ---
THIAMINE LATE TO ADMIN D/T PENDING PICC LINE PLACEMENT. PICC LINE PLACEMENT STILL IN PROCESS.
--- NOTE | 2018-11-20 12:09 | NUR ---
PICC LINE INSERTION NOTE: ASKED BY DR. LEBLANC TO EVALUATE PATIENT FOR POTENTIAL PICC LINE PLACEMENT. AFTER REVIEWING THE CHART, DISCUSSING WITH THE RN CARING FOR THE PATIENT, AND INTERVIEWING THE PATIENT, NO ABSOLUTE CONTRAINDICATIONS WERE IDENTIFIED. PATIENT WAS ABLE TO SIGN THE CONSENT FORM AND ALL QUESTIONS WERE ANSWERED BEST POSSIBLE. PATIENT'S RIGHT ARM WAS EVALUATED FIRST USING THE SITE RITE U/S. PATIENT'S BRACHIAL AND BASILIC VEINS WERE IDENTIFIED, BUT THE CEPHALIC WAS NOT VISUALIZED. THE BRACHIAL VEIN APPEARED TO BE A POTENTIAL CANDIDATE FOR PICC, BUT IS NOT OUR FIRST CHOICE. THE BASILIC VEIN WAS LARGE, BUT APPEARED TO BE STIFF AND NON EASILY COLLAPSABLE WITH THE U/S PROBE, NORMALLY FOUND WHEN EVALUATING THE VEINS. THERE WAS ALSO A WHITE-JESSICA COLORED SUBSTANCE NOTED INSIDE THE BASILIC VEIN. PATIENT'S ARMS BOTH APPEARS SWOLLEN, BUT THE RIGHT ARM APPEARED MORE SWOLLEN THAN THE LEFT. PATIENT NOTED TO HAVE GENERALIZED EDEMA PRESENT THROUGHOUT. PATIENT'S RIGHT HAND WAS ALSO PURPLEISH COMPARED TO HIS LEFT HAND. MOTTLING WAS ALSO NOTED ON PATIENT'S SHOULDERS BILATERALLY. NO MOTTLING NOTED ON LEGS. CAP REFILL WAS <3 SECONDS ON BOTH ARMS. DUE TO THESE FINDINGS, THE RIGHT ARM WAS NOT USED FOR PICC LINE. LEFT ARM WAS EVALUATED NEXT, AND THE BASILIC AND BRACHIAL VEINS WERE IDENTIFIED EASILY. BOTH VEINS WERE ESTIMATED TO BE GREATER THAN 7 FR VIA SITE RITE U/S. PATIENT'S BASILIC VEIN WAS THE BEST CHOICE, AND EASILY COLLAPSABLE WITH THE PROBE. FOLLOWING CDC RECOMMENDED STERILE TECHNIQUE, THE LEFT ARM WAS PREPPED AND PATIENT DRAPED FOR STERILE PROCEDURE. PATIENT'S BASILIC VEIN WAS ACCESSED ON THE FIRST ATTEMPT AND BRISK, DARK, NON PULSATILE BLOOD WAS EASILY RETURNED. GUIDEWIRE ADVANCED EASILY INTO THE VEIN, WELL THE INTRODUCER AND THE PICC LINE. Live[employer] MAGNET DETECTION DEVICE WAS USED AND SHOWED THE CATHETER TIP TRAVELING IN THE EXPECTED MANNER. CHEST XRAY WAS OBTAINED AND SHOWED THE TIP TO BE LOWER THAN DESIRED, AND THE PICC WAS PULLED BACK 2 CM. REPEAT CHEST XRAY TAKEN AND DESIREABLE LOCATION WAS NOTED. CHEST XRAY CONFIRMATION WAS OBTAINED BY DR. CORDOBA. STERILE DRESSING WAS PLACED OVER SITE. 8 CM EXPOSED ON PICC LINE. PATIENT AND HIS DAUGHTER WERE GIVEN EDUCATION REGARDING THIS PICC LINE AND ENCOURAGED TO ASK QUESTIONS ABOUT HIS PICC. WARM BLANKET PROVIDED FOR LEFT ARM. DR. LEBLANC CALLED TO INFORM HIM ABOUT FINDINGS ON RIGHT ARM. NO FURTHER ORDERS REC'D.
--- NOTE | 2018-11-20 13:03 | NUR ---
VITAL SIGNS AND I/O'S MISSED FOR 1000 DUE TO PATIENT GETTING A PICC LINE AND THEN DOWN TO IMAGING. RN NOTIFIED. RN SAID SHE SAY CONITNUES PULSE OX NUMBERS DURING THE PICC LINE PROCEDURE AND THEY LOOKED GOOD. WILL GET 1400 VITALS WHEN PATIENT GETS BACK FROM IMAGING.
--- NOTE | 2018-11-20 14:00 | NUR ---
PT HAS BEEN OFF TO DI OFF/ON FOR GOOD PORTION OF THE DAY. PT HAS NOTABLE INCREASED RR OF 24-26 AND SUSTAINED TACHYCARDIA 108-114 HERE AFTER MRCP. PT DENIES CHEST PAIN AND SOB. PENDING RESULTS ON SEVERAL DI STUDIES. PLAN TO TRANFER PT TO CCU SHORTLY PER PROVIDER PLAN.
--- NOTE | 2018-11-20 15:20 | NUR ---
REPORT PROVIDED TO SAVANAH PATTON IN CCU.
--- NOTE | 2018-11-20 16:54 | NUR ---
pt arrived via bed to room 128. assessment completed and Rt present to obtain ABG. Pt placed on 15L's NR due to spo2 79%, then rechecked via forhead and SPO2 INCREASED TO 89%. DR. SEE AND DR. LEBLANC IN DEPARTMENT AT THIS TIME. NEW ORDERS RECEIVED.
--- NOTE | 2018-11-20 17:05 | NUR ---
GUARD CAPTAIN HERE AT THIS TIME. FAMILY REMAINS AT THE BEDSIDE. PT REPOSITIONED ALSO BEFORE THE START OF THE TEST.
--- NOTE | 2018-11-20 17:42 | NUR ---
DR LEBLANC NOTIFIED OF LATEST ABG AND NEW ORDERS RECEIVED.
--- NOTE | 2018-11-20 18:13 | NUR ---
PT UP TO BS COMMODE MOVE SELF WELL FROM BED TO BS COMMODE WITH MINUAL ASSISTANCE. PT WAS ABLE TO PASS GAS, BUT NO BM NOTED. PT BACK TO BED AND TURNED TO HIS RIGHT SIDE. WHEN PT REMOVED OXYMASK SPO2 DECREASES TO 83%. CURRENTLY SPO2 89% WITH OXYMASK INPLACE @10L'S. PT WAS ABLE TO GET SELF BACK TO BED WITH MINUAL ASSISTANCE. SIDE RAILSX 4, CALL LIGHT WITHIN REACH, AND SCD'S ON. PT IS ACROSS FROM NURSES STATION.
--- NOTE | 2018-11-20 18:48 | NUR ---
PT APPEARS TO BE SLEEPING AT THIS TIME, SPO2 87% AT 10L'S. C/O PAIN IN HIS ABD AT THIS TIME.
--- NOTE | 2018-11-20 19:06 | NUR ---
MEDICATED WITH 15MG IVP TORDAL AT THIS TIME.
--- NOTE | 2018-11-20 20:14 | NUR ---
PT KEEPS EYES CLOSED MOST OF TIME BUT OPENS EYES QUICKLY TO VOICE. PT'S VOICE IS WEAK AND SOFT. DAUGHTER HAD INFORMED ME THAT PT WAS C/O ABD PAIN AND PT DID RATE PAIN 9. WAS GIVEN TORRADOL IV AT 1853. DR LEBLANC CALLED AND ORDER FOR TYLENOL RECIEVED. PT DOES FEEL LIKE IT IS HARD TO BREATH. 02 INC TO 13L OXYMASK FOR SATS 87-88 AND IMPROVED TO 89% WITH THIS. HAS CRACKLES THROUGH L, DIM R. R ARM IS SWOLLEN WITH MOTTLING NOTED UPPER ARM. HAS SERO OLIVA DRAINAGE LOWER R ABD SITE THAT REQUIRES DRAW SHEET TO BE CHANGED. WILL GIVE LASIX NOW PER DR LEBLANC.
--- NOTE | 2018-11-20 21:09 | NUR ---
LINEN CHANGED, PT MIMA FAIR, GRIMACING AND SL MOAN IN PAIN WITH MOVMENT. CATH CARE DONE.
--- NOTE | 2018-11-20 21:45 | NUR ---
ANTELMO SEE AND DEANA IN DEPT. DISCUSSED PT'S OXYGEN REQUIREMENTS. WILL TRY VAPOTHERM.
--- NOTE | 2018-11-20 23:42 | NUR ---
DAUGHTER ASKING FOR LIGHTS TO BE TURNED DOWN. ASSESSMENT DONE. PT FEELS LIKE VAPOHERM IS HELPING. SATS HAVE BEE 90-91% ON 23L AND 75% PER VAPOTHERM. R 22-24. CONT TO HAVE CRACKLES ALMOST THROUGHOUT ON R AND BASE L. PT WILL TILT SELF TO R SIDE. ABD DRSG THAT WAS IS BELOW MEPILEX DRSG OVER DRAIN CHANGED. CONT TO HAVE YELLOW DRAINAGE FROM MANJU. DECLINES OFFER OF DRINK OF WATER. REQUIRES ENCOURAGEMENT TO MOVE AND PARTICIPATE IN CARE. CONT TO HAVE GOOD URINE OUTPUT.
--- NOTE | 2018-11-21 00:29 | NUR ---
PT STARTING TO GET OOB. PT COMMENTS ON " ALL THESE WIRES". UNABLE TO SAY WHERE HE IS. REORIENTED TO PLACE AND EVENT AND REPOSITIONED. BACK TO SLEEP.
--- NOTE | 2018-11-21 02:00 | NUR ---
SLEEPING OFF AND ON. WILL TURN SELF FROM SIDE TO BACK ON OWN. SATS 89-90%.
--- NOTE | 2018-11-21 03:14 | NUR ---
NOTED PT TO BE RESTLESS, FELT NEED TO GO TO BATHROOM. REMINDED OF RESTREPO AND TENSION ON RESTREPO RELEASED. PT THEN STATES WAS HUNGRY. GIVEN JELLO. PT ABLE TO STATE MONTH, AND COULD REMEMBER SOME OF EVENTS RE BEING IN HOSPITAL. BREATH TONES COARSE ON LT WITH SCATTERED CRACKLES R. ENCOURAGED TO COUGH, PT HAS WEAK COUGH EFFORT. PT DID NOT C/O PAIN.
--- NOTE | 2018-11-21 04:30 | NUR ---
REPOSITIONED UP IN BED. RT IN TO CHECK P.
--- NOTE | 2018-11-21 05:15 | NUR ---
SLEEPING OFF AND ON. 02 TIRATED TO 70% PER RT, SATS 89-91%.
--- NOTE | 2018-11-21 06:04 | NUR ---
CONT TO SLEEP OFF AND ON. VAPOTHERM CONTS AT 70% FIO2 AT 23L FLOW. SATS 90-92%.
--- NOTE | 2018-11-21 06:42 | NUR ---
PT FELT IF NEEDED TO HAVE BM. UP TO BSC WITH ASSISTANCE FOR WIRES, MOVES WELL ON OWN. NO BM OR PASSING OF GAS. BACK TO BED, RR UP TO 37, SATS MID 90'S. RR TO 25 WITH IN 5 MIN. PT TIRED AND BACK TO SLEEP QUICKLY.
--- NOTE | 2018-11-21 09:04 | NUR ---
PT AWAKE A THIS TIME, PT DAUGHTER RAYNA IS INTO VISIT AT THIS TIME. ALL QUESTIONS ANSWERED. PER FAMILY PT IS NOT A MORNING PERSON, DOES NOT GET UP TILL 11AM OR LATER AND DOES NOT EAT TILL AFTER THIS TIME. PT GIVEN A JUICE ENSURE AT THIS TIME AND ENCOURAGE PT TO DRINK IT AND THE FAMILY TO HELP. RESTREPO IS DRAINING CLEAR DILUTE IN COLOR URINE, PJ IS DRAINING YELLOW IN COLOR DRAINAGE. DRESSING REMAINS DRY AT THIS TIME. SCD'S INPLACE AND BED IN LOW POSITION, CALL LIGHT WITHIN REACH, BED ALARM ON AT THIS TIME ALSO.
--- NOTE | 2018-11-21 11:01 | NUR ---
DR LEBLANC AND DR SEE INTO SEE PT THIS AM. NEW ORDERS RECEIVED. BOTH DOCTORS TALKED WITH FAMILY REGARDING PT CARE AND CONDITIONS. PT DID NOT WANT TO GET UP OUT OF BED AT THIS TIME, BUT PER DR LEBLANC PT IS TO BE UP IN THE CHAIR AND AMBULATE IN THE ELLIS. STAFF TRY TO GET PT TO EAT AND DRINK ENSURE AT THIS TIME. PT REFUSING AT TIMES TO TAKE PO INTAKE. WILL CONTIOUE TO ENCOURAGE PO INTAKE TODAY. ALL AM CARE COMPLETED ALSO AT THIS TIME.
--- NOTE | 2018-11-21 11:08 | NUR ---
HIGH FLOW DECREASED TO 35% WITH A SPO2 95% AT THIS TIME.
--- NOTE | 2018-11-21 11:51 | NUR ---
PT WORKED WITH PT AT THIS TIME, FAMILY REMAINS AT THE BEDSIDE ENCOURAGING PT TO DRINK HIS CLEAR ENSURE
--- NOTE | 2018-11-21 12:11 | NUR ---
PT REMAINS UP IN THE CHAIR, FAMILY AT THE BEDSIDE.
--- NOTE | 2018-11-21 13:03 | NUR ---
PT BACK TO BED AT THIS TIME TORDOAL 15MG GIVEN IV PUSH AT THIS TIME FOR ABD PAIN 01/30. I&O'S COMPLETED AT THIS TIME. SPO2 93% WITH FIO2 AT 35% FLOW 23 PER VAPOTHERM. FAMILY RMEAINS AT THE BEDSIDE.
--- NOTE | 2018-11-21 13:34 | NUR ---
PT ASLEEP AT THIS TIME IN BED, ALL FAMILY HAS LEFT BUT ONE DAUGHTER AT THIS TIME.
--- NOTE | 2018-11-21 13:35 | NUR ---
TALKED WITH PATIENT AND DAUGHTER MEGHAN WITH DISCHARGE PLANNING NEEDS. AT THIS TIME PATIENT CONCERNED WITH NUTRITION AND GENERALIZED WEAKNESS FROM SURGERY. PATIENT AND DAUGHTER UNSURE OF NEEDS AT THIS TIME, ENCOURAGED TO REACH OUT TO CASE MANAGEMENT ANY DEVELOP. DISCUSSED POSSIBLE PHYSICAL THERAPY NEEDS AND HOME HEALTH UPON DISCHARGE.
--- NOTE | 2018-11-21 14:32 | NUR ---
PT ASLEEP, DAUGHTER RAYNA IN RM. WILL CHECK BACK WHEN PT IS AWAKE.
--- NOTE | 2018-11-21 14:43 | NUR ---
PT AWAKEN WITH MEDICATINS, ALSO PT GIVEN MORE ENSURE JUICE AND SOME BROTH TO DRINK. ENCOURAGE PT TO DINK THEM AT THIS TIME. PT IS WILLING AT THIS POINT. FAMILY REMAINS AT THE BEDSIDE. BOTHER DAUGHTERS.
--- NOTE | 2018-11-21 16:48 | NUR ---
PT CONTIOUES TO DRINK HIS ENSURE AND WANTED A 7UP. PT HAS ISSUES WITH MILK PRODUCTS. PHONE CALL INTO DR LEBLANC REGARDING DIET.
--- NOTE | 2018-11-21 17:16 | NUR ---
PT C/O HIS EARS BEING SORE. FOAM DRESSING APPLIED TO O2 TUBING AT THIS TIME. PT PLACED INTO A SITTING POSITIN IN THE BED. PT IS ENCOURAGED TO INCREASE IS PO INTAKE. GAVE PT A 7UP. FAMILY AND STAFF TALKED ABOUT HIS MILK OR LACTOUSE INTOLERANCE AND WHAT FOOD HE COULD EAT.
--- NOTE | 2018-11-21 18:32 | NUR ---
PT SITTING UP IN BED FOR DINNER HAD A VERY SMALL AMOUNT OF BAKED POTATOE FOR DINNER. "MY STOMACH IS SMALL" PT DID GIVEN A GOOD EFFORT IN TRYING TO EAT SOME. HE REMAINS IN A SITTING UP POSITION AT THIS TIME.
--- NOTE | 2018-11-21 20:48 | NUR ---
PT SLEEPING [id number]. AT 1999 IN TO ASSESS PT. WHEN ASKED HOW HE WAS DOING PT STATED "MISERABLE" AND INDICATED HE HAD ABD PAIN. DR LEBLANC IN TO SEE PT AND T HIS WAS REPORTED TO HIM. HE WAS ALSO INFORMED THAT URINE OUTPUT WAS DECREASING. PT GIVEN 15MG TORRADOL AT 2029. AT 2044 HAD PT STAND AT BEDSIDE, CHUX CHANGED HAD DRAINAGE FROM AROUND MANJU ON IT. DRAINAGE IS LIGHT YELLOW, AND ABD THAT COVERS IT WAS ALSO CHANGED. WHEN PT STOOD O2 SAT DID DEC TO 89%, BACK TO 90aFTER GETTING BACK TO BED. NO SOB NOTED. PT DOES PREFER TO SLEEP WITH HOB UP 30 DEGREES. EXPLAINED TO DAUGHTER THAT THIS HELPED HIS BREATHING. CATH CARE DONE. PT DECLINED TO WASH FACE. PT WILL DO WHAT IS ASKED BUT DOES NO MORE THAN IS ASKED TO DO. .
--- NOTE | 2018-11-21 22:31 | NUR ---
PT SLEEPING OFF AND ON. NO CHANGE VAPOTHERM SETTINGS.
--- NOTE | 2018-11-21 23:20 | NUR ---
PT BOOSTED UP IN BED, DENIES FURTHER NEEDS AT THIS TIME.
--- NOTE | 2018-11-22 00:22 | NUR ---
PT'S DAUGHTER CAME OUT AND STATED PT NEEDED TO HAVE BM. UP TO BSC WITH MINIMAL ASSIST AND FWW. PT ONLY HAD SMEAR OF BM WHEN WIPED. PERICARE PROVIDED AND PT RETURNED TO BED. ASSESSMENT COMPLETED. PT REPORTS 8/10 RIGHT SIDED ABDOMINAL PAIN, PRN TORADOL GIVEN. LUNGS REMAIN CLEAR, DIM IN BASES, VAPOTHERM IN PLACE. DRESSING TO ABDOMEN HAS SCANT AMOUNT OF OLD DRAINAGE NOTED ON MEPILEX, IS OTHERWISE INTACT. ABD TO RIGHT SIDE APPEAR C/D/I. MANJU DRAINING YELLOW FLUID, SITE C/D/I. SCD'S IN PLACE. PICC PATENT, INFUSING WNL. BED ALARM ON FOR SAFETY, PT'S DAUGHTER AT BEDSIDE.
--- NOTE | 2018-11-22 01:41 | NUR ---
PT UP TO BS, TRIED TO HAVE BOWEL MOVEMENT APPRO 10 MIN BUT WAS NOT ABLE TO. BACK TO BED, BED ALARM ON, SCD'S ON.
--- NOTE | 2018-11-22 02:02 | NUR ---
R.T. IN TO INCREASE FIO2 TO 40% FOR SATS 88-89%.
--- NOTE | 2018-11-22 03:09 | NUR ---
PT COULD BE HEARD TRYING TO GET HIS DAUGHTER'S ATTENTION, WHO IS ASLEEP ON THE COUCH. IN TO CHECK ON PT, WHO'S LEGS WERE HANGING OVE THE SIDE RAIL. BED ALARM WAS SET, BUT NOT GOING OFF. PT UP TO BSC TO ATTEMPT TO HAVE BM, BUT WAS UNSUCCESSFUL. RETURNED TO BED, WARM BLANKET PROVIDED. BED ALARM SET TO 2ND SETTING. SCD'S ON.
--- NOTE | 2018-11-22 05:00 | NUR ---
ASSESSMENT COMPLETED, NO CHANGES FROM PREVIOUS ASSESSMENT. LABS DRAWN FROM PICC, GOOD BLOOD RETUN, FLUSHES EASILY.
--- NOTE | 2018-11-22 06:08 | NUR ---
PT UP TO BSC SEVERAL TIMES THROUGHOUT NIGHT, NOT ABLE TO HAVE BM YET THOUGH. RECEIVED 2 DOSES TORADOL FOR ABDOMINAL/RIGHT SIDE PAIN. NO NAUSEA. VAPOTHERM IN PLACE, 23L, FIO2 INCREASED TO 40%. DRESSINGS TO ABDOMEN INTACT, SMALL AMOUNT OF OLD DRAINAGE PRESENT, RIGHT SIDE/MANJU SITE REINFORCED WITH ABD FOR DRAINAGE. MANJU DRAINING SMALL AMOUNT OF YELLOW FLUID. SCD'S IN PLACE. RESTREPO PATENT, UO QS.
--- NOTE | 2018-11-22 09:00 | NUR ---
DR LEBLANC INTO SEE PT THIS AM NEW ORDERS RECEIVED. PT UP TO THE CHAIR, AND THEN TO THE BS COMMOD X3 THIS AM. HE HAS HAD 3 BM SOFT FORM TO LIQUID STOOL. THEN PT REMAINS UP IN THE CHAIR. FAMILY IS AT BEDSIDE AND JUMP TO PTS EVERY NEED OR WANT EVEN IF HE DOES NOT WANT THEM TOO. PT IS ABLE TO TRANSFER WELL WITH MINUAL ASSISTANCE. HE FINALLY ORDER MIGUEL BKF AT 10:00 TODAY. BUT DID NOT EAT MUCH OF IT. RT HAS BEEN DECREASING THE NEED FOR THE VAPOTHERM. HE WAS DECREASED TO 20L'S AND 30%.
--- NOTE | 2018-11-22 12:16 | NUR ---
DR SEE INTO SEE PT AT THIS TIME, HAS BEEN DECREASING FLOW AND FIO2, PT IS TOLERATING THIS PROCESS WELL SO FAR. CURRENTLY FLOW IS 10 AND FIO2 20 SPO2 91% AT THIS TIME.
--- NOTE | 2018-11-22 14:09 | NUR ---
PT REMAINS UP IN THE CHAIR AT THIS TIME, I& O'S COMPLETED AT THIS TIME. RESTREPO CONTIOUES TO DRAIN CLEAR YELLOW IN COLOR URINE, FAMILY REMAINS A THE BEDSIDE AND VERY INVOLVED IN THE PATIENT CARE. VAPOTHERM FIO2 DECREASED TO 25% AND FLOW IS 10 WITH JUE777%.
--- NOTE | 2018-11-22 16:54 | NUR ---
PT BACK TO BED AT THIS TIME, APPEARS COMFORTABLE, HE DID NOT EAT LUNCH TODAY. "I DONT NEED TO HAVE ANOTHER BM " ENCOURAGE PT TO EAT BUT HE AND HIS FAMILY AGREE THAT HE DOES NOT EAT MUCH ANYWAY. TRYED TO EXPLAINED THAT HE NEEDS THE PROTINE TO HEAL.
--- NOTE | 2018-11-22 18:46 | NUR ---
PT O2 DECREASED TO 2L'S VIA NC AND PT HAS MAINTAINE HIS SPO2 AT 2L'S 94%. PT IS IN BED ATE SOME OF HIS SANDWICH FOR DINNER ABOUT 3 BITES.
--- NOTE | 2018-11-22 19:30 | NUR ---
REPORT RECEIVED FROM ABDI PAVON. PT RECENTLY MEDICATED WITH TORADOL FOR PAIN BY DAY SHIFT. AWAKE IN BED, DENIES NEEDS, DAUGHTER IN ROOM.
--- NOTE | 2018-11-22 20:05 | NUR ---
IN TO SEE PT, ASSESSMENT DONE. MANJU CONT DRAINING SEROSANG FLUID. PT STATES PAIN DOWN SINCE TORADOL GIVEN, STATES HE IS COMFORTABLE AT THIS TIME. LUNGS CLEAR, DENIES SOB.
--- NOTE | 2018-11-22 20:15 | NUR ---
DR SEE IN TO ROUND ON PT.
--- NOTE | 2018-11-22 21:30 | NUR ---
PT UP TO BSC, THEN BACK TO BED. SEEMS SLIGHTLY RESTLESS.
--- NOTE | 2018-11-23 00:10 | NUR ---
ASSESSMENT DONE. FEW CRACKLES HEARD IN LUNG BASES. PT DENIES NEED FOR PAIN MED AT THIS TIME. WOKE UP CONFUSED REGARDING TIME AND PLACE. REORIENTED. POSITIONED UP IN BED FOR COMFORT.
--- NOTE | 2018-11-23 01:15 | NUR ---
PT HAS BEEN RESTLESS AND AWAKE FOR THE LAST HOUR. SAT BED UP AND REPOSITIONED PT, NOW APPEARS TO BE SLEEPING.
--- NOTE | 2018-11-23 02:46 | NUR ---
UP TO SIT ON BSC URGE TO HAVE BM BUT NO RESULTS. BACK TO BED.
--- NOTE | 2018-11-23 04:45 | NUR ---
UP TO BSC FOR SMALL BM, THEN UP TO CHAIR. 15MG IV TORADOL GIVEN FOR 9/10 ABDOMINAL PAIN. ASSESSMENT DONE. MANJU EMPTIED OF SEROSANG FLUID. ZOSYN STARTED IN PICC, GOOD BLOOD RETURN IN BOTH PORTS. CALL LIGHT IN HAND, PT DENIES FUTHER NEEDS. SON REMAINS IN ROOM ON COUCH.
--- NOTE | 2018-11-23 06:39 | NUR ---
BACK TO BED. CALL LIGHT IN HAND.
--- NOTE | 2018-11-23 07:48 | NUR ---
Report received from night shift supervisor. Pt resting in bed, family at bedside. Will continue to monitor
--- NOTE | 2018-11-23 08:00 | NUR ---
Assessment completed pt O2 turned down to 1L NC. Pt medicated for pain in RLQ of ABD. Pt alert, slow to respond but is appropriate. Pt no wanting to order breakfast. Pts family and this nurse explained the importance of eating. Pt did agree to try and drink an ensure. No other needs voiced at this time. Will continue to monitor
--- NOTE | 2018-11-23 10:45 | NUR ---
Pt up to BSC, BMx1 and keane catheter removed per order. Pt tolerated well.
--- NOTE | 2018-11-23 11:05 | NUR ---
Dr. Hayden in to see pt and D/C MANJU drain.
--- NOTE | 2018-11-23 11:47 | NUR ---
Orders received to transfer pt to floor. Pts lunch ordered. Will transfer when room available.
--- NOTE | 2018-11-23 12:40 | NUR ---
REPORT RECEIVED FROM CCU RN. AWAITING PT TO BE TRANSFERED TO MED/SURG.
--- NOTE | 2018-11-23 13:00 | NUR ---
PT ARRIVED FROM CCU. VITALS TAKEN. ASSESSMENT DONE. 1PA, FWW UP TO CHAIR. PT VOIDS IN URINAL WITH ASSISTANCE. DAMEON CARE DONE. DEPENDS APPLIED. PT EATING [place]ER[place]IJANI FRIES FROM DAUGHTERS. PT DENIES PAIN AND NAUSEA. INCISIONS SHOW NO NEW DRAINAGE. STERI STRIPS IN PLACE. EDGES APROXIMATED. PT TOELRATING ROOM AIR WITH O2 SATURATIONS ABOVE 90%. FAMILY AT BEDSIDE. FAMILY UPDATED AND VERBALIZE UNDERSTANDING. NO ADDITIONAL REQUESTS OR COMPLAINTS. CALL LIGHT WITHIN REACH.
--- NOTE | 2018-11-23 15:58 | NUR ---
THIS RN TO ROOM TO CHECK ON PT. PT UP TO CHAIR VISITING WITH FAMILY. PT REPORTS 6/10 PAIN IN ABDOMEN. SEE MAR FOR MEDICAITON GIVEN. PT DEMONSTRATES USE OF I.S. REACHING 1000ML. NO ADDITIONAL REQUESTS OR COMPLAINTS. CALL LIGHT WITHIN REACH. FAMILY AT BEDSIDE.
--- NOTE | 2018-11-23 16:28 | NUR ---
SBA BACK TO BED. WARM BLANKETS PROVIDED. CALL LIGHT IN REACH AND PERSONAL ITEMS AT BEDSIDE.
--- NOTE | 2018-11-23 17:43 | NUR ---
PUMP ALARMING, INFUSION COMPLETE. PICC LINE ASSESSED, WNL. BRISK BLOOD RETURN NOTED. PICC LINE HEPARIN LOCKED PER PROTOCOL. PT REPORTS IMPROVED PAIN NOW AT 2/10 AND DENIES NEED FOR ADDITIONAL PAIN MEDICATION AT THIS TIME. WARM BLANKET PROVIDED. NO ADDITIONAL REQUESTS OR COMPLAINTS. FAMILY AT BEDSIDE. CALL LIGHT WITHIN REACH.
--- NOTE | 2018-11-23 17:48 | NUR ---
PT TRANSFERED FROM CCU THIS SHIFT AFTER IMPROVED BREATHING AND PACREATITIS S/S. 1PA WITH FWW. ENCOURAGE TIME UP TO CHAIR AND AMBULATION TOLERATED. PT TOLERATING REGULAR DIET WITH MINIMAL APPITITE. PICC LINE WNL, HEPARIN LOCKED AT THIS TIME, IV ABX INFUSIONS THIS SHIFT. RIGHT AND LEFT ARM RESTRICTIONS IN PLACE FOR PICC LINE AND CURRENT DVT IN RIGHT ARM. PT TOELRATING ROOM AIR, WEANED OFF OF O2 THIS SHIFT. CURRENT SMOKER, NICOTENE PATCH ON LEFT SHOULDER. ABDOMEINAL INCISION WNL WITH NO DRAINAGE THIS SHIFT. FOELY AND MANJU DRAIN DC'D IN CCU. NO S/S OF ETHO WITHDRAW THIS SHIFT. PRN TYLENO GIVEN X1 FOR PAIN. MRCOP ORDERED FOR TOMORROW. IV LASIX GIVEN THIS SHIFT. PT VOIDING QUANTITY SUFFICIENT. PT USES CALL LIGHT INCONSISTANTLY.
--- NOTE | 2018-11-23 20:00 | NUR ---
WATCHING TV AND DENIES PAIN. DAUGHTER AT BEDSIDE.
--- NOTE | 2018-11-23 21:55 | NUR ---
PATIENT REMAINS AWAKE RESTING IN BED DAUGHTER AT BED SIDE. IV ANTIBIOTICS INFUSING. PIC WNL.
--- NOTE | 2018-11-23 23:18 | NUR ---
PATIENT WAS COMPLAINING OF SOME ABD DISCOMFORT AND WAS GIVEN 15MG OF IV TORADOL.
--- NOTE | 2018-11-24 00:25 | NUR ---
PATIENT RESTING QUIETLY, EYES CLOSED, NO DISTRESS NOTED, RESPS=16, CALL LIGHT IN REACH AND DAUGHTER AT BEDSIDE.
--- NOTE | 2018-11-24 02:25 | NUR ---
PATIENT JUST FINISHED VOIDING IN THE URINAL AFTER ASSISTANCE TO SIT AT THE SIDE OF THE BED. PATIENT BACK IN BED NOW. STILL ON 2L/NC. SATS=95% AND HR=68. NO C/O PAIN LIGHTS TURNED DOWN AND CALL LIGHT IN REAC. DAUGHTER AT BEDSIDE ON THE COUCH SLEEPING.
--- NOTE | 2018-11-24 04:17 | NUR ---
PATIENT RESTING QUIETLY NOW. REMAINS ON 2L/NC SATS 96% AND HR=66, RESPS 16. CALL LIGHT IN REACH. DAUGHTER ON THE COUCH ASLEEP. EYES CLOSEDD IN NO DISTRESS.
--- NOTE | 2018-11-24 06:55 | NUR ---
BEDSIDE HANDOFF REPORT RECEIVED FROM MOLD PRESSER RN. PT SLEEPING, LEFT UNDISTURBED. IV ABX INFUSING.
--- NOTE | 2018-11-24 07:50 | NUR ---
PATIENT SITTING UP IN CHAIR. SETS UP BATHROOM FOR SHOWER. PATIENT IS GOING TO USE BATHROOM. ONE PERSON ASSISTING. IV WRAPPED. LINENS CHANGED. CALL LIGHT WITHIN REACH. NO OTHER NEEDS AT THIS TIME
--- NOTE | 2018-11-24 08:20 | NUR ---
PT RESTING IN BED, ATE SMALL AMOUNT OF BREAKFAST. PT ALERT AND ORIENTED. PT DENIES PAIN. PT ON ROOM AIR, LUNG SOUNDS CLEAR, DENIES SOB. BOWEL TONES ACTIVE, DENIES NAUSEA, TOELRATING REGULAR DIET. PT WITH LEFT FACIAL DROOP AND LEFT EXTREMITY DEFICITS, GROSS MOVEMENT TO LEFT ARM, NO MOVEMENT IN LEFT LEG, SENSATION INTACT. NIH STROKE SCORE 12. PT WITHOUT EDEMA. PT 3PA TO [facility], VOIDED. DISCUSSED PLAN OF CARE WITH PT AND SIMONE, QUESTIONS ANSWERED. PT DENIES OTHER NEEDS AT THIS TIME.
--- NOTE | 2018-11-24 08:45 | NUR ---
PT RESTING IN BED. PT DENIES PAIN AT THIS TIME. PT DENIES NAUSEA, CONTINUES TO HAVE POOR ORAL INTAKE, DISCUSSED SMALL FREQUENT MEALS. PT ON 2L NC, LUNG SOUNDS CLEAR WITH COARSE CRACKELS TO LEFT LOWER LOBE, ENCOURAGED COUGH AND DEEP BREATHING. PT WITH HYPOACTIVE BOWEL TONES. ABD WITH INCISION X2, STERISTRIPS IN PLACE, DRIED DRAINAGE. CMS INTACT. PICC LINE INFUSING IV ABX, IV THIAMINE AND PEPCID GIVEN. DISCUSSED PLAN FOR MRCP AT 1000 AND TO WALK TODAY. PT DENIES OTHER NEEDS AT THIS TIME.
--- NOTE | 2018-11-24 09:16 | NUR ---
PATIENT RESTING IN BED. DAUGHTER IN ROOM. VITAL SIGNS AND I&O DONE. PATIENT REFUSED TO ORDER BREAKFAST TODAY. CALL LIGHT WITHIN REACH. NO OTHER NEEDS AT THIS TIME
--- NOTE | 2018-11-24 11:33 | NUR ---
PT ASSISTED TO WALK IN [place]. PT ABLE TO WALK AROUND HALF OF NURSING FLOOR. PT NOW SITTING IN CHAIR, AWAITING LUNCH. PT DENIES OTHER NEEDS AT THIS TIME.
--- NOTE | 2018-11-24 13:15 | NUR ---
PT RESTING IN BED. O2 SATS 87%, PLACED ON 2L NC WHILE RESTING. PT DENIES OTHER NEEDS AT THIS TIME.
--- NOTE | 2018-11-24 13:22 | NUR ---
PATIENT RESTING IN BED. DAUGHTER IN ROOM. VITAL SIGNS AND I&O DONE. LOW OXYGEN LEVEL. RN NOTIFIED. CALL LIGHT WITHIN REACH. NO OTHER NEEDS AT THIS TIME
--- NOTE | 2018-11-24 17:25 | NUR ---
PATIENT RESTING IN BED. DAUGHTER IN ROOM. VITAL SIGNS AND I&O DONE. CALL LIGHT WITHIN REACH. NO OTHER NEEDS AT THIS TIME
--- NOTE | 2018-11-24 17:35 | NUR ---
PT WENT FO MRCP THIS AM, AWAITING RESULTS. PT ON ROOM AIR WHEN AWAKE, 2L [place] RESTING, DESATS TO MID TO HIGH 80'S, LUNG SOUNDS CLEAR WITH COARSE CRACKLES TO LEFT LOBE, ENCOURAGE COUGH DEEP BREATH AND I/S. PT TOLERATING REGULAR DIET, SMALL APPETITE, ENCOURAGE. PICC LINE HEP LOCKED, IV ZOSYN. PT WITH EDEMA TO RIGHT ARM, DVT. PT BEING TRANSITIONED TO [place], BRIDGE THERAPY WITH ELIQUIS. PT WALKED IN [place] 2 TIMES TODAY, REFUSED PHYSICAL THERAPY, LOW MOTIVATION. BOWEL TONE ACTIVE. VOIDING QS. SCDS IN PLACE.
--- NOTE | 2018-11-24 19:38 | NUR ---
PATIENT RESTING QUIETLY SUPINE ON 2L/NC SATS 95%, EYES CLOSED , CALL LIGHT IN REACH. DAUGHTER GOING HOME FOR THE NIGHT.
--- NOTE | 2018-11-24 21:20 | NUR ---
PATIENET AMBULATED TO THE BATHROOM WITH 1PSBA AND VOIDED AND WENT BACK TO BED. WARM BLANKET GIVEN AND PATIENT HAS NO OTHER NEEDS AT THIS TIME.
--- NOTE | 2018-11-24 22:37 | NUR ---
PULLED PATIENT UP IN BED REPOSTION HIM.
--- NOTE | 2018-11-24 22:51 | NUR ---
PATIENT RESTING QUIETLY, EYES CLOSED, REPIRATIONS REGULAR AND EVEN, CALL LIGHT IN REACH.
--- NOTE | 2018-11-25 01:05 | NUR ---
PATIENT JUST USED URINAL WHILE IN BED, DOING OK, NO C/O PAIN. CALL LIGHT IN REACH. SATS 95% ON 2L/NC AND HR IN THE 60'S.
--- NOTE | 2018-11-25 03:05 | NUR ---
PATIENT RESTING QUIETLY SUPINE, RESPIRATIONS REGULAR AND EVEN, EYES CLOSED, SATS 94% ON 2L/NC, CALL LIGHT IN REACH.
--- NOTE | 2018-11-25 06:16 | NUR ---
PATIENT'S LABS DRAWN BY CHARGE NURSE AND HAD BEEN GIVEN 1,000MG OF TYLENOL FOR DISCOMFORT JUST A BIT AGO. CURRENTLY RESTING IN BED QUIETLY, EYES CLOSED RESPIRATIONS REGULAR AND EVEN. SATS IN THE MID 90'S% ALL NIGHT. PATIENT USING URINAL WELL. PICC WORKING WELL.
--- NOTE | 2018-11-25 07:22 | NUR ---
PATIENT IN BED RESTING, REFUSED TO GET UP TO CHAIR. CALL LIGHT IN REACH. NO FURTHER NEEDS AT THIS TIME.
--- NOTE | 2018-11-25 07:38 | NUR ---
BEDSIDE REPORT RECIEVED FROM GUANAKITO PAVON. PT RESTING IN HIS BED AND HE DENIES ANY PROBLEMS AT THIS TIME. CALL HERNANDEZ WITHIN REACH.
--- NOTE | 2018-11-25 09:26 | NUR ---
PT RESTING IN HIS BED, HE DENIES ANY ABD PAIN AND STATES HE HAD A BM THIS AM. ABD SOUNDS ACTIVE AND INCISION SITE APPEARS HEALTHY AND INTACT. PT DID NOT EAT ANY BREAKFAST AND STATES THIS IS NORMAL FOR HIM, HE WAS GIVEN AN ENSURE AND IS DRINKING IT AT THIS TIME. PT ENCOURAGED TO INCREASE HIS ORAL INTAKE OF FOOD AND TO WALK TODAY. THE PT AGREES WITH THE PLAN FOR THE DAY.
--- NOTE | 2018-11-25 10:17 | NUR ---
Pt helped back to bed after having had a loose BM. He states he is a bit tired and wishes to take a nap and declines a walk at this time. SCD's turned back on and o2 replaced prior to his nap.
--- NOTE | 2018-11-25 10:24 | NUR ---
PATIENT IN BED RESTING WITH EYES CLOSED. FREASH WATER GIVEN. CALL LIGHT IN REACH. NO FURTHER NEEDS AT THIS TIME.
--- NOTE | 2018-11-25 11:20 | NUR ---
Pt now sleeping after having walked in the halls with physical therapy. Sat is 98% on 2l while sleeping, pulse ox is on the pt.
--- NOTE | 2018-11-25 12:09 | NUR ---
DR JOSHUA NOTIFIED OF THE PT'S URINE OUTPUT.
--- NOTE | 2018-11-25 13:36 | NUR ---
PT DID NOT EAT ANY BREAKFAST AND HE STATES THAT IS NORMAL FOR HIM. I ASKED HIM NOW ABOUT LUNCH AND HE STATES HE DOES NOT WANT ANY. HE WAS ENCOUARGED TO EAT AND DID DRINK 3/4 OF A ENSURE AND AFTER A DISCUSSION I ALLOW ME TO ORDER HIM A BOWL OF SOUP. PT DENIES ANY PAIN AT THIS TIME AND HIS INCISION SITES APEAR HEALTHY AT THIS TIME.
--- NOTE | 2018-11-25 13:38 | NUR ---
PT REFUSED A WALK AND STATES, "MAYBE LATER".
--- NOTE | 2018-11-25 14:32 | NUR ---
PATIENT AMBULATED IN HALLWAY 1 LAP AROUND NURSES STATION, 1PA FWW. PATIENT NOW BACK TO BED. CALL LIGHT IN REACH. NO FURTHER NEEDS AT THIS TIME.
--- NOTE | 2018-11-25 16:07 | NUR ---
Pt resting in his bed and he has a "little bit" of pain in his abd which he rates at 2-3 which is acceptable. Pt declines to go for a walk at this time. SCD'S are on and running at this time.
--- NOTE | 2018-11-25 17:47 | NUR ---
PATIENT IN BED. NO VOID, WILL CHECK BACK IN. CALL LIGHT IN REACH. NO FURTHER NEEDS AT THIS TIME.
--- NOTE | 2018-11-25 19:26 | NUR ---
PATIENT RELAXING IN BED, NO PAIN, ON 2L/NC IN NO DISTRESS, NO NEEDS AT THIS TIME. CALL LIGHT IN REACH.
--- NOTE | 2018-11-25 21:30 | NUR ---
CRIMINAL JUSTICE LAWYER ROUNDING NOTE. PT RESTING IN BED WITH PRIMARY RN AT BEDSIDE. PT DENIES QUESTIONS OR CONCERNS AT THIS TIME. CALL LIGHT IN REACH.
--- NOTE | 2018-11-25 23:41 | NUR ---
PATIENT RESTING QUIETLY IN BED, RESPIRATIONS REGULAR AND EVEN, 93% ON 2L/NC WITH HR=84, EYES CLOSED, CALL LIGHT IN REACH.
--- NOTE | 2018-11-26 00:54 | NUR ---
PATIENT AMBULATED INTO THE BATHROOM WITH A 1 PERSON STANDBY ASSIST AND BACK TO BED. REMAINS ON 2L/NC AND IS HOOKED UP TO HIS SCD'S. CALL LIGHT IN REACH.
--- NOTE | 2018-11-26 01:26 | NUR ---
PATIENT CALLED SAYING HE WOULD LIKE SOMETHING FOR 6/10 ABD PAIN. 1,000MG PO TYLENOL GIVEN. NO OTHER NEEDS AT THIS TIME. CALL LIGHT IN REACH.
--- NOTE | 2018-11-26 03:34 | NUR ---
PATIENT RESTING QUIETLY IN LOW FOWLERS POSITION, EYES CLOSED, RESPIRATIONS REGULAR AND EVEN. O2 SATS 96% ON 2L/NC AND HR=74. CALL LIGHT IN REACH.
--- NOTE | 2018-11-26 05:05 | NUR ---
PATIENT HAS SLEPT OFF AND ON THROUGH THE NIGHT, SCD'S ON, 2L/NC, SATS 95% AND HR=74. MINOR COMPLAINT OF ABD PAIN RELIEVED WITH 2 TYLENOL. PATIENT RESTING QUIETLY A THIS TIME EYES CLOSED AND RESPIRATIONS REGULAR AND EVEN.
--- NOTE | 2018-11-26 07:30 | NUR ---
BEDSIDE REPORT RECEIVED FROM GUANAKITO PAVON. PT SLEEPING AT THIS TIME. CALL HERNANDEZ WITHIN REACH.
--- NOTE | 2018-11-26 08:50 | NUR ---
PT AWAKES TO DIRECT QUESTIONS, DENIES ANY NEW PROBLEMS AND FALLS QUICKLY BACK TO SLEEP. PT CONTINUES TO EAT VERY LITTLE AND ONLY ATE 25% OF HIS BREAKFAST, PT GIVEN AN ENSURE AND ENCOUARGED TO DRINK IT. SAT 96% ON 2L WHILE SLEEPING WITH HR IN THE 70'S. CALL HERNANDEZ WITHIN REACH.
--- NOTE | 2018-11-26 11:41 | NUR ---
Pt getting ready at this time for a shower. Dr Hayden to the pt's room speaking with the pt.
--- NOTE | 2018-11-26 12:32 | NUR ---
PT JUST FINISHED EATING LUNCH AND HE DENIES ANY PAIN AT THIS TIME. CALL HERNANDEZ WITHIN REACH AND HE IS SITTING CHAIR WITHOUT ANY COMPLAINTS. PT AGREES TO GO FOR A WALK AND WILL BE TAKEN SHORTLY.
--- NOTE | 2018-11-26 12:43 | NUR ---
PT AMBULATED IN THE HALLS AND WALKED ONE COMPLETE LOOP WITH HIS WALKER AND A SBA. HE WAS STEADY ON HIS FEET AND TOLERATED THE WALK WELL. PT CLEANED HIS DENTURES AND IS NOW SITTING BACK IN HIS CHAIR WITH HIS CALL LIGHT IN REACH.
--- NOTE | 2018-11-26 15:02 | NUR ---
PT RESTING IN HIS BED AND HE DENIES ANY PAIN OR PROBLEMS.
--- NOTE | 2018-11-26 15:08 | NUR ---
PT AMBULATED IN THE HALLS AND WALKED A HALF LAP WHICH HE TOLERATED WELL.
--- NOTE | 2018-11-26 16:37 | NUR ---
Pt on the phone with his daughter at this time.
--- NOTE | 2018-11-26 17:04 | NUR ---
Pt has denied pain this shift and did well today. His appetite is poor but did increase slightly from yesterday. His incision site remains healthy and intact.
--- NOTE | 2018-11-26 18:06 | NUR ---
Pt continues to denie any pain or problems.
--- NOTE | 2018-11-26 18:37 | NUR ---
Urine output for the last 4 hours was 40 ml of dark yellow urine. I had been encouraging the pt to increase his PO fluids which has not happened. I called and left a message for Dr Hayden to notify him of the pt's poor urine output.
--- NOTE | 2018-11-26 19:26 | NUR ---
RECEIVED REPORT FROM SAVANAH BROWN. pt RESTING IN BED. ENCOURAGED PO INTAKE. EDUCATED ON IMPORTANCE OF URINE OUTPUT. pt RELUCTANT BUT DID DRINK SOME. NO REQUESTS AT THIS TIME. CALL LIGHT MAT ESQUIVEL. WHITEBOARD UPDATED.
--- NOTE | 2018-11-26 20:20 | NUR ---
DELIVERER FOOD ROUNDING NOTE. PT DENIES QUESTIONS OR CONCERNS AT THIS TIME. PT WOULD LIKE A SHORT BREAK FROM SCD'S, REMOVED. PT DENIES FURTHER NEEDS AT THIS TIME. CALL LIGHT IN REACH. WHITE BOARD UPDATED.
--- NOTE | 2018-11-26 21:10 | NUR ---
ASSESSMENT DONE. MEDICATIONS GIVEN (SEE MAR). PICC FLUSHED, BLOOD RETURN NOTED, HEP LOCKED PER PROTOCOL. ENCOURAGED PO INTAKE, pt STATED "I'VE HAD ALL I CAN TAKE", FLUIDS AT THE BEDSIDE. NO REQUESTS AT THIS TIME. WILL CALL WHEN HE URINATES, URINAL AT BEDSIDE. CALL LIGHT WITHIN REACH.
--- NOTE | 2018-11-26 22:02 | NUR ---
URINE OUTPUT LOW. MD NOTIFED. ENTERED NEW ORDERS FOR LR BOLUS, 1L OVER 1 HOUR.
--- NOTE | 2018-11-26 22:18 | NUR ---
UPDATED pt ON PLAN. IV BOLUS STARTED PER ORDERS (SEE MAR). CALL LIGHT WITHIN REACH. NO REQUESTS AT THIS TIME.
--- NOTE | 2018-11-26 23:08 | NUR ---
ANSWERED CALL LIGHT. PATIENT WANTED PUT LOTION ON HIS BACK. DONE.
--- NOTE | 2018-11-26 23:37 | NUR ---
IV PUMP BEEPING. IVF BOLUS COMPLETE. PICC FLUSHED, BLOOD RETURN NOTED. HEPLOCKED PER PROTOCOL. pt RESTING WITH EYES CLOSED, RESPIRATIONS REGULAR AND UNLABORED. CALL LIGHT WITHIN REACH.
--- NOTE | 2018-11-27 00:37 | NUR ---
PRN PAIN MEDICATION FOR 9/10 ABD PAIN (SEE MAR). POINTED TO PAIN NEAR INCISION. INCISION HAS STERISTRIPS, NO NEW DRAINAGE NOTED. WILL CONTINUE TO MONITOR. pt HAS NOT VOIDED YET, DENIES NEED TO. CALL LIGHT WITHIN REACH.
--- NOTE | 2018-11-27 02:25 | NUR ---
ROUNDED ON pt. RESTING WITH EYES CLOSED, RESPIRATIONS REGULAR AND UNLABORED. RATE = 18. CALL LIGHT WITHIN REACH.
--- NOTE | 2018-11-27 03:32 | NUR ---
ROUNDED ON pt. RESTING WITH EYES CLOSED, RESPIRATIONS REGULAR AND UNLABORED, RATE = 18. CALL LIGHT WITHIN REACH.
--- NOTE | 2018-11-27 05:55 | NUR ---
pt RESTED MOST OF SHIFT. PRN MED MEDS X1. PICC LINE, HEP LOCKED. MINIMAL INTAKE, 1L LR BOLUS FOR LOW OUTPUT. OUTPUT IMPROVED. 1PA FWW. INCISION SITE HAS STERISTRIPS IN PLACE, DRY DRAINAGE. USES CALL LIGHT APPROPRIATELY.
--- NOTE | 2018-11-27 07:45 | NUR ---
REPORT RECEIVED FROM SAVANAH DARLING. PT APPEARS TO BE ASLEEP IN BED.
--- NOTE | 2018-11-27 09:30 | NUR ---
STAFF STATED PATIENT QUALIFIES FOR HOME OXYGEN WITH ACTIVITY. SPOKE WITH PATIENT IN ROOM. HE STATES HE WILL USE THE OXYGEN THAT HIS EX- USED, [facility]. PATIENT STATES HE HAS A WALKER AT HOME. PATIENT UNDERSTANDS THAT WE WILL NEED TO SET UP HOME OXYGEN BEFORE DISCHARGE. DISCUSSED THAT HE SHOULD KNOW HIS DIAGNOSIS, ANY MEDICATIONS NEEDS AND SIDE EFFECTS, AND FOLLOW UP APPOINTMENTS BEFORE HE GOES HOME. PATIENT STATES UNDERSTANDING. PATIENT STATES HE HAS HELP FROM FAMILY AFTER GOING HOME. FEELS SAFE TO RETURN HOME. STATES "I'M MORE THAN READY".
--- NOTE | 2018-11-27 09:38 | NUR ---
PATIENT IN CHAIR TALKING TO OCEAN FREIGHT AGENT. FRESH WATER GIVEN. CALL LIGHT IN REACH. NO FURTHER NEEDS AT THIS TIME.
--- NOTE | 2018-11-27 11:09 | NUR ---
PT WALKED IN [place] WITH RT AND INSTRUCTIONAL SPECIALIST. QUALIFIED FOR HOME O2.
--- NOTE | 2018-11-27 11:32 | NUR ---
SPOKE WITH DAMIEN AT [facility], [place] REGARDING HOME OXYGEN [phone]. FAXED CLINICALS, OXYGEN QUALIFIER AND ORDER TO [facility] [place] [phone]. SPOKE WITH DAMIEN AGAIN, THEY RECEIVED AND ARE PROCESSING.
--- NOTE | 2018-11-27 12:10 | NUR ---
DISCUSSED WITH PATIENT AND ON DISCHAGE HOME. PATIENT LIVES NEXT DOOR TO DAUGHTER, GRANDSON AND SON JOSEPH LIVES THREE MINUTES AWAY. THEY FEEL HE HAS QUICK SUPPORT AND HELP NEEDED. PATIENT ALSO FEELS VERY SAFE IN RETURNING HOME WITH HIS FAMILY SUPPORT. PATIENT ALSO STATES HE HAS A WALKER AT HOME TO USE NEEDED. HE DENIES ANY OTHER CONCERNS OR QUESTIONS.
--- NOTE | 2018-11-27 12:15 | NUR ---
SPOKE WITH PATIENT AND SON JOSEPH REGARDING HOME OXYGEN. DISCUSSED THAT HE QUALIFIES NEED, BUT WE AT THIS TIME ARE UNSURE OF DIAGNOSIS. THAT WHEN DR LEBLANC DOES HIS DISCHARGE, HE WILL PLACE THAT. WE DISCUSSED THAT SOMETIMES MEDICARE WILL NOT COVER THE DIAGNOSIS AND THE PATIENT WOULD ASSUME THE RESPONSIBILITY OF COST UNTIL THEY SEE THE PCP AND IT IS DETERMINED IF THEY STILL NEED IT. PATIENT DENIES HAVING A HISTORY OF COPD, OR CHF OR OTHER CHRONIC OXYGEN NEEDS. PATIENT DOES ADMIT HE IS A DAILY SMOKER. WE DISCUSSED RISKS OF USING OXYGEN AND LIGHTING CIGARETTES OR HAVING ANY FLAMES AROUND OXYGEN. HE STATES UNDERSTANDING. HE AND SON JOSEPH STATE THEY WILL PAY FOR THE OXYGEN IF IT IS NOT COVERED AT THIS TIME BY MEDICARE. CALLED DAMIEN AT [facility], [place] AND UPDATED HER. SHE IS SENDING NEEDED PAPERWORK TO MEDICAL FLOOR AT FAX [phone]. CALLED SHIPBOARD INTELLIGENCE ANALYST AND UPDATED HER AND CHARGE NURSE. THEY WILL WATCH FOR FAX FROM [facility] [place] AND PLACE IT ON CHART FOR DR. LEBLANC.
--- NOTE | 2018-11-27 13:02 | NUR ---
PT SITTING IN CHAIR, LOOKING OUT WINDOW. PT APPEARS TO BE ALERT AND ORIENTED AND MENTIONED THAT HE THOUGHT HE MIGHT GET TO BE DC'D TODAY. PT SAID HE FEELS MUCH BETTER, DID GET TO WATCH THE [place]ORKS ON THE 4TH THROUGH THE WINDOW. HAD A PLEASANT VISIT, EXTENDED A BLESSING TO PT. WILL FOLLOW NEEDED
--- NOTE | 2018-11-27 14:02 | NUR ---
CALLED DR LEBLANC REGARDING HOME O2 QUALIFY AND PLANS.
[2018-11-27] MEDS ORDERED: NICOTINE PATCH1 EAC1 TD (14:40)
[2018-11-27] MEDS ORDERED: COUMADIN2.5 MG PO (14:40)
[2018-11-27] MEDS ORDERED: TYLENOL EXTRA500 MG PO (14:41)
[2018-11-27] MEDS ORDERED: FAMOTIDINE20 MG PO (14:41)
--- NOTE | 2018-11-27 14:47 | NUR ---
PATIENT UP TO BED FROM CHAIR. SAVANAH NICHOLE IN ROOM. CALL LIGHT IN REACH. NO FURTHER NEEDS AT THIS TIME.
--- NOTE | 2018-11-27 14:56 | NUR ---
FAXED THE HOME OXYGEN ORDER WITH A NEW DIAGNOSIS TO [facility], SHE INFORMED ME THAT IT REQUIRED AN ALTERNATIVE TREATMENT BEFORE INSURANCE WOULD COVER IT. NOT IMPRESSED WITH SERVICE.
--- NOTE | 2018-11-28 09:46 | DS ---
[facility] [address], [place] [address] Signed ADMISSION DATE: 11/15/2018 DISCHARGE DATE: 11/27/2018 REASON FOR ADMISSION: Presumed gallstone pancreatitis, concurrent alcoholism, and underlying multiple medical problems including COPD. HISTORY OF PRESENT ILLNESS: This 68-year-old white man, looks far older than his stated age, was admitted following his emergency room evaluation for biliary obstruction, concurrent pancreatitis, and gallstones noted in the common duct based on imaging studies of CT scan and ultrasound. He is known to drink alcohol on a daily sustained basis. The patient had 3 days of increasing epigastric and right subcostal pain, nausea, and vomiting, and presented to the emergency room where he was evaluated by Dr. Blankenship. He was considered likely to have cholecystitis and on that basis, a gallbladder ultrasound was obtained. It showed layering sludge and amorphous changes in the region of the jayor hepatis. A CT scan was then obtained, which showed marked intrahepatic ductal dilatation, the gallbladder with layering sludge, and common duct, which was dilated and probably filled with filling defects including possible stones. His lipase was noted to be greater than 2500 and with findings consistent with clinical pancreatitis, he was admitted for further evaluation and care. He has a past history, which was rather complex regarding peptic ulcer disease. From what I could gather, it sounds as though he had an antrectomy with vagotomy, subsequently converted to a probable Moo-en-Y configuration due to reflux and bile gastritis. The patient drinks alcohol on a daily basis and would clearly be considered a chronic alcoholic. His children affirm this. Additionally, he smokes rather heavily. He lives in [place] alone, though not far from his daughter and son. PERTINENT PHYSICAL EXAMINATION: GENERAL: Showed a white man who did not look to be severely distressed and he was unshaven, looks far older than age of 68 years. HEENT: Trachea is midline. Mucous membranes are markedly dry. CHEST: Shows diminished breath sounds. No wheezing or rhonchi. HEART: Regular. ABDOMEN: Scaphoid and nondistended. There is mild tenderness in the epigastric and subcostal area on the right. There is a long midline incision, which was well healed. No sign of incisional hernia. EXTREMITIES: Showed no clubbing, cyanosis, or edema. Electronically Signed By: VENESSA LEBLANC MD 11/28/18 0946 PATIENT NAME: SKY ADAMSON DISCHARGE SUMMARY DATE OF : 46 REPORT #: [id number] PHYSICIAN: VENESSA LEBLANC MD PCP: XAVIER PITTMAN REPORT IS CONFIDENTIAL AND NOT TO BE RELEASED WITHOUT AUTHORIZATION [facility] [address] [place], [place] [address] Signed LABORATORY STUDIES: Showed a white count of 8.1, hematocrit of 34.5, and platelets 216,000. Electrolytes showing potassium 3.5, creatinine of 0.58, glucose 155, bilirubin 3.0, AST 79, ALT 71, alk phos 526, lipase 2547, and albumin 2.8. HOSPITAL COURSE: He was admitted with the probability of gallstone pancreatitis, though admittedly gallstones were not clearly seen in the gallbladder, only what may be sludge and imaging of the biliary tree showed dilation and amorphous filling defects, which were thought likely to be stones. He was given fluid resuscitation and consultation was undertaken with hospitalist service for alcohol withdrawal prophylaxis. This included primarily Valium. He did have improvement of his abdominal pain symptoms and his labs improved even overnight. He was somewhat somnolent on the basis of his sedation to avoid alcohol withdrawal syndrome. Nicotine patch was initiated to manage his cigarette abstinence. He had elevated white count, but improving lab studies with a bilirubin still elevated at 4.4 on 11/16/2018, lipase 664, elevated white count 15.7, and hematocrit 33.6 with normal platelets of 204,000. Concurrent antibiotics were given during this time. Consulting physician, Dr. Iglesias was helpful in adjusting his sedation to his clinical findings. By November 17, 2018, the patient's clinical symptoms were much improved. His lipase was down to normal at 58. Alkaline phosphatase still elevated to 303 with a total bilirubin of 2.7. Given his previous findings on CT scan, it was thought highly probable that he still had likely gallstones within the biliary tree. On November 15, 2018, he underwent a planned laparoscopic cholecystectomy, possible laparoscopic common duct exploration. At the time of operation on November 21, 2018 he was found to have the subhepatic space completely socked in with dense adhesions and bowel loop viscera without visualization of gallbladder. On that basis, he was converted to a right subcostal laparotomy. Lysis of adhesions was undertaken, but there was essentially fusion of an enteric limb in the subhepatic space. The liver was chronically inflamed with a blunted liver edge, but not frankly nodular and liver biopsy was obtained as was placement of a Miguel drain in subhepatic space. To have proceeded to attempt cholecystectomy on the face of these dense adhesions, would almost surely result in an enteric defect and high probability of fistula or other adverse results. Reconsideration of his underlying problem (pancreatitis likely gallstone related), but possibly alcohol-related, it was deemed appropriate to not pursue further extensive dissection of the subhepatic space with high hazard to enteric viscera and unlikely benefit or ability to perform an actual common duct exploration as would be necessary. On that basis, the wound was closed with a drain in the subhepatic space. The drain showed no sign of bile leak or other problems. He was taken to the intensive Electronically Signed By: VENESSA LEBLANC MD 11/28/18 0946 PATIENT NAME: SKY ADAMSON DISCHARGE SUMMARY DATE OF : 46 REPORT #: [id number] PHYSICIAN: VENESSA LEBLANC MD PCP: XAVIER PITTMAN REPORT IS CONFIDENTIAL AND NOT TO BE RELEASED WITHOUT AUTHORIZATION [facility] [address] [place], [place] [address] [facility] care unit postoperatively and maintained with Valium as a sedative as needed. He did not have significant evidence of an alcohol withdrawal syndrome. His medication was weaned over time. He was maintained on broad-spectrum antibiotics. His lab studies showed an improvement of his bilirubin, ultimately normalized at 1.0 by November 19, 2018. Additionally, his lipase and other liver enzymes normalized as well. A plan had been made reasonably soon postoperatively to do an MRCP to assess the need for possible ERCP papillotomy. However, the patient developed a fair amount of pulmonary congestion with tachypnea and was not suitable for MRCP due to inability to cooperate with device repair technician to maintain reasonable stillness for such an exam. A PICC line was placed on the left side and at that time, right arm edema was noted. This was on November 20, 2018. Further interrogation of the right arm with duplex ultrasound showed a deep venous thrombosis of the brachial vein, though it did not appear to extend more proximally than that. On that basis, he was initiated with subcutaneous Lovenox as treatment for his deep venous thrombosis of the right upper extremity. He had variable accuracy of readings of his oxygen level and required transfer back to the intensive care unit for further monitoring. Imaging studies including chest x-ray showed marked excess fluids and pulmonary edema. He was begun on an intensive diuretic therapy plan with replacement of electrolytes as necessary. Ultimately, 6 L of fluid were taken off the patient with marked improvement in his pulmonary function. A family conference was held with the patient, his son and daughter and myself confirming a reestablishment of his code status as "no code." His previous no code status had been suspended for operation and perioperative period. The patient had progressive improvement on return to the regular nursing floor. He had been weaned from high-flow oxygen ultimately to room air. He was noted at nighttime to have decreased O2 saturations requiring additional oxygen supplementation at 2 L nasal cannula. The patient was maintained with a nicotine patch for smoking cessation, ultimately weaned completely off Lasix for diuresis, and maintained for DVT prophylaxis with Lovenox. He was transitioned to oral warfarin when his oral intake started to improve. By discharge, his INR is therapeutic at 2.8 on a dose of 2.5 mg of Coumadin daily. A long discussion has been undertaken with the patient in the presence of his daughter regarding need for avoidance of further alcohol intake of any sort at any time as well as discontinuance and maintenance of smoking cessation. Although he agrees to do this, I think it is unlikely to be successful. Unfortunately, he has long-standing smoking history and chronic alcoholism, though admittedly he is detoxified from both of them at this point. Electronically Signed By: VENESSA LEBLANC MD 11/28/18 0946 PATIENT NAME: SKY ADAMSON DISCHARGE SUMMARY DATE OF : 46 REPORT #: [id number] PHYSICIAN: VENESSA LEBLANC MD PCP: XAVIER PITTMAN REPORT IS CONFIDENTIAL AND NOT TO BE RELEASED WITHOUT AUTHORIZATION [address] [address] Signed At time of discharge, he is tolerating oral intake. He has no abdominal pain. Subcostal incision is healing well. He is therapeutically anticoagulated for his right upper extremity deep venous thrombosis. He is free of smoking and is detoxified regarding alcohol withdrawal potential. FOLLOWUP PLAN: He will return to the ongoing care of his primary provider, ADRIANA Dillon. Appointment has been made in the Coumadin Clinic for assistance and monitoring his ProTime and INR and adjusting Coumadin dose. Note, he was not qualified financially in his insurance for a thrombin inhibitor and therefore Coumadin is his backup approach. It is anticipated that his anticoagulation will go for 3 months or so. Notably, the patient did undergo MRCP in the hospital setting showing complete decompression of biliary tree. He may have small stones in the gallbladder but no clear sign of filling defects within the biliary tree. These findings were affirmed with the radiologist, Dr. Vidal, though the written report had not yet made it to the chart at time of discharge. If future cholecystectomy is ever required, it will be very problematic given the chronic scarring in the sub hepatic space with densely adherent small bowel ( likely from gastroenterostomy from the past). MEDICATIONS: His discharge medications will include: 1. Nicotine patch 21 mg daily, #30, refills #3. 2. Coumadin 2.5 mg p.o. daily. 3. Tylenol Extra Strength 500 mg two tablets p.o. q.6 hours as needed for pain. 4. Famotidine (Pepcid) 20 mg p.o. b.i.d. DISCHARGE DIAGNOSES: 1. Pancreatitis, likely related to biliary obstruction, common duct stones with CT and ultrasound findings of intrahepatic ductal dilatation and filling defects of the distal common duct. 2. Probable spontaneous passage of stones with clearance of pancreatitis. No evidence of stones on in house MRCP followup. 3. Laparoscopy with conversion to right subcostal laparotomy with extensive dense adhesions of subhepatic space, essentially inoperable for cholecystectomy without high hazard of enteric injury. 4. Chronic alcoholism. 5. Long-standing smoking. 6. Chronic obstructive pulmonary disease associated with smoking with chronic hypoxemia (nocturnal worst) requiring home oxygen. 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 Electronically Signed By: VENESSA LEBLANC MD 11/28/18 0946 PATIENT NAME: SKY ADAMSON DISCHARGE SUMMARY DATE OF : 46 REPORT #: [id number] PHYSICIAN: VENESSA LEBLANC MD PCP: XAVIER PITTMAN REPORT IS CONFIDENTIAL AND NOT TO BE RELEASED WITHOUT AUTHORIZATION [facility] [address] [place], [place] [address] Signed 7. Deep venous thrombosis of right upper extremity, etiology unknown requiring chronic anticoagulation with Coumadin for then next 3 months. ADDITIONAL FOLLOWUP: He will follow up with me in approximately 4 weeks and will be seeing Xavier Pittman in near future as well as Coumadin Clinic as noted. MD MIGUEL ANGEL Patton/KISHANL /[id number] cc: MD Sharla Sheikh MD Dr. ADRIANA Dillon Dr. Copies: GOKUL SEE CYNTHIA MD HARRIES, LINDA PA ~ Electronically Signed By: VENESSA LEBLANC MD 11/28/18 0946 PATIENT NAME: SYK ADAMSON DISCHARGE SUMMARY DATE OF : 46 REPORT #: [id number] PHYSICIAN: VENESSA LEBLANC MD PCP: XAVIER PITTMAN REPORT IS CONFIDENTIAL AND NOT TO BE RELEASED WITHOUT AUTHORIZATION
== END 2018-11-27 15:45 | disposition home or self-care (01) | DRG 405 ==
LOC: ED 07:40 → MS 12:01 → CCU 11-17 14:10 → MS 11-18 06:45 → CCU 11-20 15:30 → MS 11-23 12:45
PROVIDERS: ADMIT Surgery
PROC: 0F9 Hepatobiliary System and Pancreas, Drainage (ICD-10-PCS; 2018-11-17)
PROC: 0FB10ZX Excision of Right Lobe Liver, Open Approach, Diagnostic (ICD-10-PCS; 2018-11-17)
PROC: 0FN00ZZ Release Liver, Open Approach (ICD-10-PCS; 2018-11-17)
PROC: 0WJP4ZZ Inspection of Gastrointestinal Tract, Percutaneous Endoscopic Approach (ICD-10-PCS; principal; 2018-11-17 10:00)
PROC: 02HV33Z Insertion of Infusion Device into Superior Vena Cava, Percutaneous Approach (ICD-10-PCS; 2018-11-20)
DX: K85.10 Biliary acute pancreatitis without necrosis or infection (principal); J96.01 Acute respiratory failure with hypoxia; K80.51 Calculus of bile duct without cholangitis or cholecystitis with obstruction; I82.621 Acute embolism and thrombosis of deep veins of right upper extremity; K85.20 Alcohol induced acute pancreatitis without necrosis or infection; J44.9 Chronic obstructive pulmonary disease, unspecified; K76.0 Fatty (change of) liver, not elsewhere classified; E87.6 Hypokalemia; F17.210 Nicotine dependence, cigarettes, uncomplicated; F10.20 Alcohol dependence, uncomplicated; E83.42 Hypomagnesemia; E87.70 Fluid overload, unspecified; Z53.31 Laparoscopic surgical procedure converted to open procedure; Z88.8 Allergy status to other drugs, medicaments and biological substances
CPT/HCPCS: 00790; 36415; 36569; 36600; 51702; 71045; 71250; 74177; 74181; 74183; 76705; 80048; 80053; 81001; 82247; 82465; 82803; 83615; 83690; 83735; 83880; 84075; 84100; 84478; 84550; 85025; 85032; 85610; 87040; 87070; 87075; 87205; 88307; 88313; 93005; 93010; 93306; 93971; 94760; 94761; 94762; 94799; 97110; 97116; 97161; 99285-25; 99406; A9579; J0131; J0330; J0690; J1100; J1160; J1170; J1644; J1650; J1720; J1885; J1940; J2250; J2270; J2405; J2543; J2704; J2765; J3010; J3360; J3411; J3475; J3480; J7030; J7040; J7060; J7120

== ENCOUNTER 2019-09-27 06:20 | Inpatient (IN) | payer MEDICARE, OTHER ==
[~2019-09-27] VITALS: Ht 165.1 cm; Wt 59.0 kg
[~2019-09-27 06:20] MED LIST: COUMADIN2.5 MG PO; FAMOTIDINE20 MG PO; NICOTINE PATCH1 EAC1 TD; TYLENOL EXTRA500 MG PO; WARFARIN SODIU2.5 MG PO
--- NOTE | 2019-09-29 11:28 | HP ---
[facility] [address] [place], [place] [address] Signed ADMISSION DATE: 09/27/2019 REASON FOR ADMISSION: Abdominal pain. HISTORY OF PRESENT ILLNESS: This 69-year-old white man is a chronic alcoholic, though he drinks less alcohol now than he used to, he currently drinks only 4 beers daily. A year ago, I find him in the hospital with extensible pancreatitis related either to alcoholism or to biliary disease. At that time, he underwent exploration for cholecystectomy and found to have completely inoperable right upper abdomen related to prior gastric surgery in the subhepatic space. Cholecystectomy was not performed at that time. He tells me for the past 2 weeks, he has been having intermittent abdominal pain, mostly in the right side. Contrary to his emergency room interpretation, he does not have subscapular pain on the right side. He says he has back pain related to his yard work. His evaluation in the emergency room by Dr. Jaime showed no evidence of hyperlipasemia and white count was normal at 3.7. His white count was only 3.7 with hematocrit of 39.2 and a platelet count of 276,000. He had less than 10 mg/dL of alcohol and his Chem profile was essentially normal. Creatinine was 0.68, glucose 137. Liver enzymes normal or alkaline phosphatase was slightly elevated at 128. Lipase was 12. A COVID-19 test was found to be negative. His urinalysis was slightly abnormal with a urine protein of 30, nitrite positive, white cells 15 per high-power field. Bacteria were 4+. He was considered to have a concurrent urinary tract infection. An ultrasound was performed and interpreted by Dr. Vidal, which showed a 15 mm echogenic focus without posterior shadowing and noted previously on his prior CT and ultrasound scans, considered likely a soft stone or "sludge ball." The gallbladder wall was mildly thickened and there was some pericholecystic fluid. Knight sign was considered positive. Common duct was 8 mm. Right kidney was normal. There is no ascites. SOCIAL HISTORY: He lives in [place]. He lives alone. He drinks alcohol on a daily basis, 4 beers a day, he says. PHYSICAL EXAMINATION: GENERAL: Pleasant white man, who looks completely normal and undisturbed in every way. VITAL SIGNS: Temperature is 98.3, pulse is 94, blood pressure 147/74, pulse oximetry was 94% on room air. Electronically Signed By: VENESSA LEBLANC MD 09/29/19 1128 [facility] HISTORY AND PHYSICAL DATE OF : 46 REPORT #: [id number] PHYSICIAN: VENESSA LEBLANC MD PCP: DENNIS AMAYA MD REPORT IS CONFIDENTIAL AND NOT TO BE RELEASED WITHOUT AUTHORIZATION [facility] [address] [place], [place] [address] Signed NECK: Shows no thyromegaly or cervical adenopathy. Mucous membranes are slightly dry. CHEST: Clear. HEART: Regular without murmur. ABDOMEN: He has a right subcostal scar and a mid epigastric scar. He has mild tenderness in the right lateral abdomen. There is no ascites. EXTREMITIES: Show no clubbing, cyanosis, or edema. No petechiae. LABORATORY STUDIES: As previously noted. IMAGING: Imaging study confirms no evidence of intrahepatic ductal dilatation of the liver. Right kidney is normal. There appears to be a non-shadowing defect in the gallbladder with mild gallbladder wall thickening and some irregular appearance otherwise. ASSESSMENT: I had previously attempted access of his gallbladder for intervention to include cholecystectomy in the past. At that time, he was considered possible to have a gallstone related pancreatitis, though alcoholic pancreatitis was considered possible as well. At that time, he had dilated intrahepatic ductal dilatation. He does not show signs of biliary sepsis by any means and his urinalysis is abnormal, for which appropriate antibiotic therapy is indicated pending results of culture. One would have to have a great and extreme hesitation in approaching the right subhepatic space for cholecystectomy. On the basis of possibility of acute cholecystitis, we will order a HIDA scan tomorrow to assess if there is patency of the cystic duct. If there is a filling defect in the gallbladder, a CCK HIDA test would generally be avoided. I am not entirely convinced, he does have cholecystitis. Alcohol withdrawal prophylaxis will be necessary considering his daily alcohol use. Consideration for consult with the hospitalist will be made on that basis as well. Venessa Leblanc MD /MODL /[id number] Electronically Signed By: VENESSA LEBLANC MD 09/29/19 1128 PATIENT NAME: SKY ADAMSNO [facility] HISTORY AND PHYSICAL DATE OF : 46 REPORT #: [id number] PHYSICIAN: VENESSA LEBLANC MD PCP: DENNIS AMAYA MD REPORT IS CONFIDENTIAL AND NOT TO BE RELEASED WITHOUT AUTHORIZATION [address] [address] Signed cc: MD Dr. Addison Guerrero Copies: DENNIS AMAYA MD ~ Electronically Signed By: VENESSA LEBLANC MD 09/29/19 1128 PATIENT NAME: SKY ADAMSON [facility] HISTORY AND PHYSICAL DATE OF : 46 REPORT #: [id number] PHYSICIAN: VENESSA LEBLANC MD PCP: DENNIS AMAYA MD REPORT IS CONFIDENTIAL AND NOT TO BE RELEASED WITHOUT AUTHORIZATION
--- NOTE | 2019-09-30 11:38 | EKG ---
[facility] [address] [facility] [place] [address] Signed Normal sinus rhythm Possible Left atrial enlargement Low voltage QRS Prolonged QT Abnormal ECG When compared with ECG of 26-DEC-2018 15:30, Vent. rate has decreased BY 34 BPM Nonspecific T wave abnormality now evident in Inferior leads Confirmed by ROSEY FRANCOIS MD ([id number]) on 09/30/2019 11:37:56 AM Electronically Signed By: ROSEY FRANCOIS MD 09/30/19 1138 PATIENT NAME: SNOWSKY Electrocardiogram DATE OF : 46 PHYSICIAN: ROSEY FRANCOIS MD REPORT #: [id number] REPORT IS CONFIDENTIAL AND NOT TO BE RELEASED WITHOUT AUTHORIZATION
[2019-10-01] MEDS ORDERED: TYLENOL EXTRA500 MG PO (13:13)
[2019-10-01] MEDS ORDERED: WARFARIN SODIU2.5 MG PO ×2 (13:13→13:40)
--- NOTE | 2019-10-02 09:56 | OR ---
[facility] [address] [place], [place] [address] Signed DATE OF OPERATION: 09/30/2019 SURGEON: Venessa Leblanc MD PREOPERATIVE DIAGNOSES: 1. Acute calculous cholecystitis, distant history of gallstone pancreatitis. 2. 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 POSTOPERATIVE DIAGNOSES: 1. Acute calculous cholecystitis, distant history of gallstone pancreatitis. 2. 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 PROCEDURES PERFORMED: 1. Open exploration of abdomen with extensive lysis of adhesions. 2. Open cholecystectomy, prolonged, complicated and difficult. 3. Flexible choledochoscopy. ANESTHESIA: General endotracheal; Francisco Gianluca, FROZEN YOGURT MAKER, and local 20 mL of 0.25% Marcaine with epinephrine. INDICATIONS: This 69-year-old white man, is a patient of Dr. Dennis Santos. He was admitted to the hospital under my service on September 27, 2019, with findings consistent with acute calculous cholecystitis. He has a complex past medical history, which includes chronic alcoholism. A year ago, he was admitted to the hospital with acute pancreatitis, which may have been related to gallstones, though he also has alcoholism and that was a competing theory for his pancreatitis. At that time, he had a dilated biliary tree with stones within the common duct. A plan was made at that time for operative cholecystectomy with common duct exploration as needed. Conversion from a laparoscopic to an open procedure was required due to a hostile abdomen in particularly with matted loops in the right subcostal area. Notably, he has undergone multiple gastric operations, possibly to include a Moo-en-Y gastroenterostomy. Exploration at that time under open technique was essentially impossible to identify the gallbladder and the plan for operative cholecystectomy and common duct exploration were abandoned. Postoperatively, he had an MRCP, which showed decompression of the biliary tree and passage of stones. He was briefly treated with Electronically Signed By: VENESSA LEBLANC MD 10/02/19 0956 PATIENT NAME: SKY ADAMSON OPERATIVE REPORT DATE OF : 46 REPORT #: [id number] PHYSICIAN: VENESSA LEBLANC MD PCP: DENNIS SANTOS MD REPORT IS CONFIDENTIAL AND NOT TO BE RELEASED WITHOUT AUTHORIZATION [facility] [address] [place], [place] [address] Signed Coumadin for an upper extremity deep venous thrombosis on the right side. He had done well since that time with no further episodes of pancreatitis and no biliary symptoms. His recent admission to the hospital was significant for tenderness in right subcostal area, which had been brewing for at least 2 weeks. His evaluation included a gallbladder ultrasound showing stones or stone debris within the gallbladder and a thickened gallbladder wall consistent with acute cholecystitis. He has no sign of ascites or nodular changes of the liver. He was given intravenous fluids and parenteral antibiotics, pain control and so forth. A plan for a HIDA scan to assess for patency of the cystic duct was anticipated on , however, the technology was not available at that time and on Tuesday, he underwent a CT scan of the abdomen, which confirmed a very thickened gallbladder wall, probable intra-cholecystic stones, but no sign of intrahepatic ductal dilatation or other problems. The patient has remained quite tender to the touch and despite his prior findings on operation in October of last year, I recommended exploration of the abdomen and attempted cholecystectomy given his unrelenting persistent and acute calculous cholecystitis. If this is not possible, consideration will be made for a cholecystostomy tube with decompression of the gallbladder otherwise. He and his son in conversation understand the risks of bleeding, infection, bile duct injury, need for open procedure, and importantly injury to surrounding bowel loops, which comprise a considerable amount of the right upper abdomen, definitely considered to be "hostile." They understand these risks and wished to proceed. FINDINGS: Indeed there were dense adhesions in the subhepatic space on the right side. The apex of the gallbladder was identified and flexible choledochoscopy undertaken through a defect created in the apex of the gallbladder. A mushy stone type debris was removed. Indeed, there were bowel loops from prior gastric surgery, possibly Moo-en-Y type anatomy impressively adherent to the gallbladder, but without sign of fistulization. Meticulous care and dissection allowed for definition of the gallbladder separate and distinct from these loops and ultimately a complete cholecystectomy was undertaken. A cholangiogram was not performed. No more likely to be able to be performed, as there was no persistent patency of the cystic duct. An area with bile leak concordant to cystic duct remnant was oversewn with complete control of bile. The operation was prolonged, complicated, and difficult, but accomplished safely. Notably, the liver had no sign of cirrhotic changes. DESCRIPTION OF PROCEDURE: The patient was brought to the operating room, given a general endotracheal anesthetic. Preoperative antibiotic Ancef had been given. Sequential compression device stockings Electronically Signed By: VENESSA LEBLANC MD 10/02/19 0956 PATIENT NAME: SKY ADAMSON OPERATIVE REPORT DATE OF : 46 REPORT #: [id number] PHYSICIAN: VENESSA LEBLANC MD PCP: DENNIS SANTOS MD REPORT IS CONFIDENTIAL AND NOT TO BE RELEASED WITHOUT AUTHORIZATION [address], [place] [address] Signed were used. After satisfactory general endotracheal anesthesia, a Mi catheter was placed. The abdomen was prepared with a chlorhexidine solution and draped sterilely. Previous right subcostal incision was used. Dissection was carried through the skin sharply with a #15 blade and electrocautery used to transect the subcutaneous tissue, anterior rectus sheath, rectus muscle, and posterior rectus sheath. Adherence of the peritoneum to the underlying soft tissue was noted. Meticulous care was made in line for entering to the abdomen. There were all omental adhesions directly over the right subcostal space. Identification of usual anatomy was lacking. The liver edge was identified, however. A stub of tissue of uncertain origin was considered possibly the apex of the gallbladder. Meticulous dissection around this ultimately defined that it was indeed the gallbladder and densely adherent to surrounding soft tissue, later identified as small bowel loops, likely related to a Moo-en-Y gastric operation. The right upper quadrant of the abdomen was clearly be defined as "hostile" per usual deformation due to extensive adhesions and so on. A defect was created in the apex of the gallbladder allowing for identification of bile. The defect was increased in size and a Kali stone forceps used to pass into the gallbladder extracting mushy yellowish stone type material. There were no large stones. Irrigation was undertaken. There was bloody fluid within the gallbladder and clearly the mucosa of the gallbladder was markedly inflamed. A metal suction device was passed carefully down the gallbladder to define its extent. Displaying further than one might expect. A flexible choledochoscope was passed down the gallbladder to be sure that the gallbladder was clear of stone and debris anticipating possible cholecystostomy tube. There was no evidence of neoplasm per se, no retained stones. I saw no outlet of the gallbladder (cystic duct) per se. Mindful that a cholecystostomy tube would be a possibility, but also mindful that most optimal management would be cholecystectomy if possible. Further dissection was undertaken of the bowel loops near the gallbladder. Meticulous care was taken to avoid injury to those bowel loop, so as to avoid fistulization and so on. Ultimately a slick plane could be developed between the bowel loops, identifying more fully the gallbladder itself. A fibrotic aperture was developed around the midportion of the gallbladder, allowed for evaluation of the space around the gallbladder and it was clear that with extreme care, cholecystectomy could be performed. The wall of the gallbladder was incised anteriorly anticipating a fenestrating cholecystectomy. The inferior or posterior wall was dissected free and a plane created between the gallbladder and the liver itself, and ultimately a complete excision of the gallbladder taken out in 2 chunks. Irrigation was undertaken. Bile was noted to be leaking from the site, which I believe corresponded to a cystic duct remnant. This was oversewn with a simple 4-0 PDS suture on a small needle allowing for complete closure of the leaking bile. Vicki was applied to the operative site to diminish any bleeding and through a separate stab incision, a 7 mm flat Miguel drain was placed in the subhepatic space and down into Electronically Signed By: VENESSA LEBLANC MD 10/02/19 0956 PATIENT NAME: SKY ADAMSON OPERATIVE REPORT DATE OF : 46 REPORT #: [id number] PHYSICIAN: VENESSA LEBLANC MD PCP: DENNIS SANTOS MD REPORT IS CONFIDENTIAL AND NOT TO BE RELEASED WITHOUT AUTHORIZATION [address] [address] Signed the gallbladder fossa. Secured to the skin with nylon suture. Irrigation was undertaken. There was no sign of ongoing bleeding or other problems. The bowel that had been dissected free to allow for access to the gallbladder was found to be intact without sign of enterotomy, enteric leak or other problem. Plans were then made for closure. The posterior sheath and its attendant peritoneum were reapproximated with running #1 PDS suture. The rectus muscle was irrigated and the anterior rectus sheath secured similarly. Skin was closed with running subcuticular 3-0 Vicryl after application of 20 mL of 0.25% Marcaine with epinephrine. The operation was prolonged, complicated, and difficult, that was accomplished safely and with good clinical result. Blood loss was less than 50 mL. MD MIGUEL ANGEL Patton/MODL /[id number] cc: Dennis Santos MD Copies: DENNIS SANTOS MD ~ Electronically Signed By: VENESSA LEBLANC MD 10/02/19 0956 PATIENT NAME: SKY ADAMSON [facility] OPERATIVE REPORT DATE OF : 46 REPORT #: [id number] PHYSICIAN: VENESSA LEBLANC MD PCP: DENNIS SANTOS MD REPORT IS CONFIDENTIAL AND NOT TO BE RELEASED WITHOUT AUTHORIZATION
--- NOTE | 2019-10-02 09:56 | DS ---
[facility] [address] [place], [place] [address] Signed ADMISSION DATE: 09/27/2019 DISCHARGE DATE: 10/01/2019 REASON FOR ADMISSION: This 69-year-old white man is a chronic alcoholic, though he drinks less than he used to, now only four beers daily. He presented to the emergency room with right upper abdominal pain and found by evaluation of ultrasound and clinical examination to have acute calculous cholecystitis. Quite notably a year ago, he was hospitalized for pancreatitis, which was thought related to his alcoholism or possible to biliary disease. At that time, he had a dilated biliary tree. He underwent exploration intending for cholecystectomy and common duct exploration that was converted to open operation due to profound adhesions in the right upper abdomen. At that time, he had a "hostile abdomen" in the upper abdomen related to multiple gastric operations from peptic disease in the past. The gallbladder could not even be identified and allowed for cholecystectomy and cholangiogram and common duct exploration. He did undergo liver biopsy and placement of a drain, and subsequent MRCP showed clearance of the duct, no sign of ductal dilatation and he had clinical improvement. He was discharged home. He recently, however, presents with right upper abdominal pain and evaluation in the emergency room by Dr. Jaime showed a normal white count of 3.7, hematocrit 39.2, platelets of 276,000 and less than 10 mg/dL of alcohol. Chem profile essentially normal with creatinine of 0.68. Liver enzymes normal. Alkaline phosphatase elevated to 128 and lipase 12. His COVID-19 test was found to be negative. He did have a urinalysis, which was abnormal for urine protein of 30, nitrite positive, white cells 15 per high-power field. Notably, he was on Coumadin now for nearly a year for a right upper extremity DVT that has clinically resolved. He is admitted for further evaluation and care on the basis of urinary tract infection based on urinalysis as well as presumably acute calculous cholecystitis. PERTINENT PHYSICAL EXAMINATION: GENERAL: A thin white male, who looked completely normal and undisturbed. VITAL SIGNS: Temperature 98.3, pulse 94, and blood pressure 147/74. ABDOMINAL: Showed right subcostal scar, well healed and mid epigastric scar and mild tenderness in right upper lateral abdomen. Imaging studies confirmed no evidence of intrahepatic ductal dilatation in the liver. Right kidney was normal. There appeared to be a non-shadowing defect in the gallbladder, mild gallbladder wall thickening, some irregular appearance of the mucosa. Electronically Signed By: VENESSA LEBLANC MD 10/02/19 0956 PATIENT NAME: SKY ADAMSON DISCHARGE SUMMARY DATE OF : 46 REPORT #: [id number] PHYSICIAN: VENESSA LEBLANC MD PCP: DENNIS SANTOS MD REPORT IS CONFIDENTIAL AND NOT TO BE RELEASED WITHOUT AUTHORIZATION [address] [address] Signed HOSPITAL COURSE: He was admitted, given intravenous fluids, antibiotics, and so forth on the basis of urinary tract infection and possible acute cholecystitis. Clinical examination showed his white count to go to 7.4, which remained low of course and hematocrit of 33.6 with platelets 203,000. He clinically was doing well, though he still had tenderness in the right upper abdomen. The plan for a HIDA scan was made to assess for cystic duct patency, however, the nuclear logging engineer was not available on the day intended, and therefore he underwent a CT scan of the abdomen. This showed thickening of the gallbladder wall with edema and probable stones. The common bile duct itself was thickened, though there was no sign of obstruction and no filling defect of the common duct. The apex of the gallbladder was adjacent to the abdominal wall. He had a fair amount of pericholecystic edema related to the gallbladder wall. He was considered most likely to have acute calculous cholecystitis after all. On Monday, September 30, 2019, he underwent right subcostal laparotomy. He was indeed found to have a "hostile abdomen" in the right upper abdomen with complete obliteration of the tissue inferior to the right lobe of the liver. The apex of the gallbladder was able to be identified and confirmed and exploration of the gallbladder through this small opening demonstrated meshy gallstone debris. Choledochoscopy was undertaken within the gallbladder itself, showing no sign of neoplasm, but showing marked inflammation and edema. With extreme caution and diligence surrounding soft tissue including bowel loops from prior probable Moo-en-Y gastric anastomosis were freed allowing for meticulous and cautious complete cholecystectomy. A drain was placed in the space as well. Postoperatively, he was immediately improved, showing no sign of tenderness and no complaints of pain. He was able to tolerate a regular diet and strongly wished to be discharged home. The consideration at discharge is his issue of ongoing Coumadin treatment. Since his blood clot was his only prior thrombotic event, I believe he no longer needs chronic anticoagulation. It has been well more than six months since that event. On that basis, his Coumadin will be discontinued, though his primary physician Dr. Santos can review whether he wishes to him to stand on long-term. He does not have an atrial dysrhythmia such as atrial fibrillation either. At discharge, he is advised to avoid lifting more than 20 pounds for the next 30 days and to walk on a daily basis. DISCHARGE MEDICATIONS: His discharge medications will include Tylenol 1000 mg p.o. q.6 hours p.r.n. pain, #60. Electronically Signed By: VENESSA LEBLANC MD 10/02/19 0956 PATIENT NAME: SKY ADAMSON DISCHARGE SUMMARY DATE OF : 46 REPORT #: [id number] PHYSICIAN: VENESSA LEBLANC MD PCP: DENNIS SANTOS MD REPORT IS CONFIDENTIAL AND NOT TO BE RELEASED WITHOUT AUTHORIZATION [facility] [address] [place], [place] [address], [place] [address] Signed He will discontinue his famotidine 20 mg p.o. q.12 hours and warfarin 2.5 mg daily. DISCHARGE DIAGNOSES: 1. Severe acute calculus cholecystitis with "hostile abdomen" in the right upper abdomen related to prior gastric surgery. 2. Status post open cholecystectomy, prolonged complicated difficulty on September 30, 2019. 3. History of alcoholism. 4. History of right upper extremity deep venous thrombosis (October 2018). 5. History of multiple gastric operations for peptic disease with resultant hostile abdomen in the right upper abdomen. FOLLOWUP PLAN: He is to return to see me in approximately 4-6 weeks. He will follow up with Dr. Santos as per usual as well. MD MIGUEL ANGEL Patton/KAEL /[id number] cc: Dennis Santos MD Copies: DENNIS SANTOS MD ~ Electronically Signed By: VENESSA LEBLANC MD 10/02/19 0956 PATIENT NAME: SKY ADAMSON MAIKKOFFI DISCHARGE SUMMARY DATE OF : 46 REPORT #: [id number] PHYSICIAN: VENESSA LEBLANC MD PCP: DENNIS SANTOS MD REPORT IS CONFIDENTIAL AND NOT TO BE RELEASED WITHOUT AUTHORIZATION
--- NOTE | 2019-10-02 15:21 | PATH ---
[facility] [address] [facility] [place], [place] [address] Signed SPECIMEN(S): A GALLBLADDER SPECIMEN SOURCE: A. GALLBLADDER CLINICAL HISTORY: Cholecystitis (profound). FINAL PATHOLOGIC DIAGNOSIS: Gallbladder, cholecystectomy: - Acute and chronic cholecystitis. - Negative for calculi. - Incidental pericystic lymph node with reactive features. JVR:ashley:C2NR MICROSCOPIC EXAMINATION: Histologic sections of all submitted blocks are examined by light microscopy. These findings, together with the gross examination, support the pathologic diagnosis. GROSS DESCRIPTION: The specimen, labeled "HW, A.," and designated on the requisition "gallbladder," is received in formalin and consists of Specimen: Fragmented gallbladder with clot material. Dimensions: 8.5 x 3.0 x 2.5 cm in aggregate. Serosa: Violaceous and ragged with attached fatty tissue. Cystic Duct: Unidentifiable. Calculi: Absent. Mucosa: Pablo-brown and rough. Wall thickness: Up to 1.1 cm. Lymph node: No pericystic lymph nodes are grossly identified. Additional: None. Senior Director Creative Services sections are submitted in cassettes (A1-A2). AT (under the direct supervision of a pathologist) The Gross Description was prepared using a voice recognition system. The report was reviewed for accuracy; however, sound-alike word errors, addition and/or deletions may occur. If there is any question about this report, please contact Client Services. PERFORMING LABORATORY: The technical component was performed by [employer], Berhane Rodriguezvanessa Nagi, PATIENT NAME: SKY ADAMSON PATHOLOGY DATE OF : 46 REPORT #: [id number] PHYSICIAN: MYNOR WALLS PCP: DENNIS AMAYA MD REPORT IS CONFIDENTIAL AND NOT TO BE RELEASED WITHOUT AUTHORIZATION [facility] [address] [facility] [place] [address] [place] [address] (Tassel Snipper: aN Samuels MD; CLIA# [id number]). Professional interpretation [place] [address] (Tassel Snipper: Tera Vizcarra M.D.). Diagnostician: Tera Vizcarra MD Pathologist Electronically Signed 10/02/2019 Copies: ~ PATIENT NAME: SKY ADAMSON PATHOLOGY DATE OF : 46 REPORT #: [id number] PHYSICIAN: MYNOR WALLS PCP: DENNIS AMAYA MD REPORT IS CONFIDENTIAL AND NOT TO BE RELEASED WITHOUT AUTHORIZATION
== END 2019-10-01 13:51 | disposition home or self-care (01) | DRG 412 ==
LOC: ED 06:20 → MS 06:22
PROVIDERS: ADMIT Surgery
PROC: 0FJB0ZZ Inspection of Hepatobiliary Duct, Open Approach (ICD-10-PCS; 2019-09-30)
PROC: 0FN40ZZ Release Gallbladder, Open Approach (ICD-10-PCS; 2019-09-30)
PROC: 0FT40ZZ Resection of Gallbladder, Open Approach (ICD-10-PCS; principal; 2019-09-30 10:14)
DX: K80.00 Calculus of gallbladder with acute cholecystitis without obstruction (principal); N39.0 Urinary tract infection, site not specified; F10.20 Alcohol dependence, uncomplicated; F17.210 Nicotine dependence, cigarettes, uncomplicated; Z86.718 Personal history of other venous thrombosis and embolism; Z79.01 Long term (current) use of anticoagulants
CPT/HCPCS: 00790; 36415; 74177; 76705; 80048; 80053; 81001; 82150; 83690; 83735; 85025; 85610; 85730; 87077; 87088; 87186; 93005; 93010; 96361; 96365; 96375; 96376; 99285-25; 99406; G0480; J0690; J0696; J1100; J1170; J1644; J1885; J2001; J2060; J2270; J2370; J2405; J2704; J3010; J3475; J3480; J7030; J7121; Q9967; U0002

== ENCOUNTER 2024-05-03 14:26 | Inpatient (IN) | payer OTHER, MEDICARE ==
[~2024-05-03] VITALS: Ht 165.1 cm; Wt 47.7 kg
--- NOTE | 2024-05-03 00:20 | NUR ---
PATIENT NOTED TO BECOME MORE RESTLESS AND PULLING AT LINES. NEW ORDER RECEIVED PER EMAR. PATIENT FAMILY REMAINS AT BEDSIDE, CALL LIGHT WITHIN REACH.
[2024-05-03] MEDS ORDERED: SODIUM CHLORIDE 0.9% 1,000 ML IV ONE ×2 (15:00→19:30)
[2024-05-03 15:12] LABS: HEMOGLOBIN 9.8 g/dL (12.0-18.0); MCV 97.3 fl (81-99); RDW 16.3 (10.5-15.0)
[2024-05-03 15:15] LABS: HEMATOCRIT 27.5 % (35.0-50.0); MCH 34.7 (27-36); MCHC 35.6 g/dl (30-36); PLATELET COUNT 163 K/uL (140-440); RBC 2.82 M/ul (4.3-5.7)
[2024-05-03 15:27] LABS: ALBUMIN 2.6 g/dL (3.4-5.0); ALBUMIN/GLOBULIN RATIO 0.59 (1.1-2.4); BILIRUBIN, TOTAL 2.1 ng/dL (0.2-1.0); BUN/CREATININE RATIO 21.42 (6.0-28.6); CALCIUM 8.4 mg/dL (8.5-10.1); CREATININE, SERUM 1.26 mg/dL (0.70-1.30)
[2024-05-03 15:29] LABS: LYMPHOCYTES, MANUAL DIFF 16; MONOCYTES, MANUAL DIFF 1; NEUTROPHILS, MANUAL DIFF 83
[2024-05-03] MEDS ORDERED: LIDOCAINE 2% VISCOUS 6 ML SYR TOP ONE (16:30)
[2024-05-03 17:18] LABS: BILIRUBIN, URINE POSITIVE (negative); BLOOD/HGB, URINE LARGE (Negative); KETONE, URINE TRACE (Negative); LEUK ESTERASE, URINE TRACE (negative); NITRITE, URINE POSITIVE (negative); PH, URINE 5.5 (5-7)
[2024-05-03 17:26] LABS: BACTERIA, URINE 2+ /hpf (negative); CASTS, URINE NONE SEEN \\lpf; COLLECTION TYPE, URINE CLEAN CATCH; CRYSTALS, URINE NONE SEEN (0-1+); EPITHELIAL CELLS, URINE SQUAMOUS 1+ /lpf (0-1+); RED BLOOD CELLS, URINE 41-50 /hpf (0-5); REFLEX CULTURE, URINE Yes (No)
[2024-05-03] MEDS ORDERED: CEFTRIAXONE/SODIUM CHLORIDE 2 GM/100 ML PIGGYBACK IV ONE (18:00)
[2024-05-03] MEDS ORDERED: LORazepam 2 MG/ML VIAL IV ONE ×2 (18:00→18:30)
[2024-05-03] MEDS ORDERED: POTASSIUM CHLORIDE 20 MEQ in DEXTROSE 5% 250 ML IV SCH (18:45)
[2024-05-03] MEDS ORDERED: dilTIAZem HCL 25 MG/5 ML VIAL IV ONE (18:45)
[2024-05-03] MEDS ORDERED: POTASSIUM CHLORIDE 10 MEQ/100 ML BAG IV SCH (19:00)
[2024-05-03] MEDS ORDERED: CALCIUM GLUCONATE 1,000 MG/10 ML VIAL IV ONE (19:30)
[2024-05-03] MEDS ORDERED: ACETAMINOPHEN 650 MG SUPP PR ONE (19:30)
[2024-05-03] MEDS ORDERED: SODIUM CHLORIDE 0.9% 1,000 ML IV SCH ×2 (19:45→22:00)
[2024-05-03] MEDS ORDERED: ondansetron HCL 4 MG/2 ML VIAL IV PRN (19:45)
[2024-05-03] MEDS ORDERED: ACETAMINOPHEN 650 MG SUPP PR PRN (20:30)
[2024-05-03 21:02] VITALS: BP 91/46
--- NOTE | 2024-05-03 21:05 | NUR ---
PATIENT ARRIVED TO CCU ROOM 129. HANDOFF REPORT RECEIVED FROM SAVANAH DIAZ. PATIENT FAMILY AT BEDSIDE
--- NOTE | 2024-05-03 21:09 | EKG ---
[facility] [address] [facility] [place] [address] Signed Atrial fibrillation with rapid ventricular response Left axis deviation Low voltage QRS Inferior infarct , age undetermined ST \T\ T wave abnormality, consider anterolateral ischemia Abnormal ECG When compared with ECG of 29-SEP-2019 14:52, Significant changes have occurred Confirmed by Jimmie Conrad MD () on 05/03/2024 9:09:11 PM Electronically Signed By: JIMMIE CONRAD MD 05/03/242108 PATIENT NAME: SKY ADAMSON MAIKLANACLARISA Electrocardiogram DATE OF : 46 PHYSICIAN: JIMMIE CONRAD MD REPORT #: [id number] REPORT IS CONFIDENTIAL AND NOT TO BE RELEASED WITHOUT AUTHORIZATION
[2024-05-03] MEDS ORDERED: AZITHROMYCIN 500 MG in DEXTROSE 5% 250 ML IV SCH (21:13)
[2024-05-03] MEDS ORDERED: NOREPINEPHRINE BITARTRATE 250 ML IV SCH (21:15)
--- NOTE | 2024-05-03 21:30 | NUR ---
DOCTOR IN ROOM TO DISCUSS PLAN OF CARE. FAMILY REMAINS AT BEDSIDE.
[2024-05-03] MEDS ORDERED: NOREPINEPHRINE BITARTRATE 250 ML IV ONE (21:36)
--- NOTE | 2024-05-03 21:50 | NUR ---
PATIENT CONTINUES TO BE HYPOTENSIVE, LAST BP 93/45 MAP 54. NEW ORDERS RECEIVED. NOREPINEPHRINE DRIP STARTED AT 2 MCG/MIN PER MEDICATION FLOWSHEET.
[2024-05-03 22:00] VITALS: BP 87/68
[2024-05-03 22:30] VITALS: BP 91/48
[2024-05-03] MEDS ORDERED: AZITHROMYCIN 500 MG VIAL ONE (22:43)
[2024-05-03 23:00] VITALS: BP 87/45
--- NOTE | 2024-05-03 23:00 | NUR ---
NEW 20G IV STARTED IN PATIENT LEFT HAND AND 20G IV STARTED IN PATIENT RIGHT FOREARM. PATIENT TOLERATED WELL.
[2024-05-03 23:30] VITALS: BP 97/61
[2024-05-03] MEDS ORDERED: LORazepam 2 MG/ML VIAL IV PRN (23:45)
[2024-05-04] VITALS (24 sets, daily range): BP systolic 64–102; BP diastolic 37–72
[2024-05-04] MEDS ORDERED: POTASSIUM CHLORIDE 100 ML IV ONE (00:11)
--- NOTE | 2024-05-04 01:47 | NUR ---
Primary rn requests bladder scan. Results of 205ml in bladder. Primary rn notified. Lab in room for draw.
[2024-05-04] MEDS ORDERED: SODIUM CHLORIDE 0.9% 1,000 ML IV SCH ×2 (02:45→06:30)
--- NOTE | 2024-05-04 02:50 | NUR ---
PATIENT UPDATED PROVIDED TO . NEW ORDERS RECEIVED. SEE EMAR.
--- NOTE | 2024-05-04 04:15 | NUR ---
PATIENT CONTINUES TO OPEN EYES TO VERBAL STIMULI BUT DOES NOT FOLLOW COMMANDS. PATIENT IS UNABLE TO ANSWER QUESTIONS APPROPRIATELY. IV SITES WNL. PATIENT FAMILY REMAINS AT BEDSIDE. PATIENT REPOSTIONED IN BED, AND APPEARS TO BE COMFORTABLE. NOREPINEPHRINE INFUSING PER MEDICATION FLOWSHEET.
--- NOTE | 2024-05-04 05:00 | NUR ---
PATIENT HAD EPISODE OF INCONTINENCE. PATIENT LINEN AND GOWN CHANGED. PATIENT REPOSITIONED IN BED. PATIENT FAMILY AT BEDSIDE. NO FURTHER NEEDS AT THIS TIME.
[2024-05-04 05:39] LABS: BASOPHILS 0.1 % (0-2); HEMATOCRIT 20.5 % (35.0-50.0); HEMOGLOBIN 7.1 g/dL (12.0-18.0); LYMPHOCYTES 1.4 % (24-44); MCH 34.1 (27-36); MCHC 34.5 g/dl (30-36); MONOCYTES 0.8 % (0-12); NEUTROPHILS 97.7 % (39-80); PLATELET COUNT 61 K/uL (140-440); RBC 2.07 M/ul (4.3-5.7)
[2024-05-04 05:55] LABS: ALBUMIN 1.6 g/dL (3.4-5.0); ALBUMIN/GLOBULIN RATIO 0.57 (1.1-2.4); ANION GAP 13.9 (7-21); BILIRUBIN, DIRECT 1.2 mg/dL (0.0-0.2); BILIRUBIN, TOTAL 1.8 ng/dL (0.2-1.0); BUN/CREATININE RATIO 14.2 (6.0-28.6); CALCIUM 7.1 mg/dL (8.5-10.1); CREATININE, SERUM 1.69 mg/dL (0.70-1.30); MAGNESIUM 1.4 mg/dL (1.8-2.4); PHOSPHORUS, INORGANIC 1.9 mg/dL (2.5-4.9); POTASSIUM 2.9 mmol/L (3.5-5.1); PROTEIN, TOTAL 4.4 g/dL (6.4-8.2)
--- NOTE | 2024-05-04 06:00 | NUR ---
DR CONRAD IN PATIENT ROOM TO DISCUSS PLAN OF CARE. FAMILY AT BEDSIDE.
[2024-05-04] MEDS ORDERED: MAGNESIUM SULFATE 2 GM/50 ML BAG IV SCH (06:45)
--- NOTE | 2024-05-04 06:51 | NUR ---
UR CLINICAL REVIEW: [facility] [place] 05/03/24 @ 1946 ORDER MATCHES REG NO AUTH REQUIRED PER [place] GUIDELINES.WILL SEND CLINICALS FOR REVIEW DISCHARGE PLANNING PENDING 05/07/24
--- NOTE | 2024-05-04 07:45 | NUR ---
bedside report and orientation to pt and family, white board updated, pt and family denies needs. call light in reach - pt quiet- does not answer questions, eyes open, alert. levophed and iv fluids checked iv site wnl.
--- NOTE | 2024-05-04 08:00 | NUR ---
dr ferro spoke with pt and his children - plan of care to move in the direction of comfort care. no blood no echo today. pt awake and non talkative at this time.
--- NOTE | 2024-05-04 08:59 | NUR ---
left ac iv dc wnl - pt restless, confused and pulling out ivs/monitors - iv ativan given for comfort. family at side- attempts to re orient pt fail.
[2024-05-04] MEDS ORDERED: POTASSIUM PHOSPHATE 30 MMOL in DEXTROSE 5% 500 ML IV ONE (09:00)
[2024-05-04] MEDS ORDERED: MORPHINE SULFATE 4 MG/ML VIAL IV PRN (10:00)
[2024-05-04] MEDS ORDERED: ATROPINE SULFATE 1% OPTH DROPS SL PRN (10:00)
[2024-05-04] MEDS ORDERED: ARTIFICIAL TEARS 15 ML BTL OU PRN (10:00)
[2024-05-04] MEDS ORDERED: SCOPOLAMINE 1 MG/3 DAYS PATCH 1 EACH TDSY TD SCH (10:30)
--- NOTE | 2024-05-04 10:42 | NUR ---
MED REC COMPLETE
--- NOTE | 2024-05-04 10:42 | NUR ---
INFORMED BY DR. CONRAD, THEY WILL BE WITHDRAWING CARE. WILL DISCUSS POTENTIAL HOSPICE WITH FAMILY TODAY.
--- NOTE | 2024-05-04 11:01 | NUR ---
IV FLUIDS COMPLETE, NEW BAG HUNG WHILE PRIMARY RN IS WITH OTHER PATIENTS. FAMILY REMAINS AT BEDSIDE, DENIES ANY NEEDS AT THIS TIME.
--- NOTE | 2024-05-04 11:34 | NUR ---
VISITED DURING SPIRITUAL CARE ROUNDS. PT SLEEPING - DID NOT DISTURB. VISITED WITH DAUGHTER IN HALLWAY AND SON IN ROOM. BOTH EXPRESSED SITUATIONALLY APPROPRIATE EMOTIONAL RESPONSES, UNDERSTANDING OF SITUATION, CONFIDENCE IN DECISIONS MADE. PHYSICAL SECURITY MANAGER PROVIDED SUPPORTIVE PRESENCE, HOSPITALITY, PRAYER, FACILITATED INTERACTION IN THERAPY ANIMAL. FAMILY EXPRESSED GRATITUDE.
--- NOTE | 2024-05-04 11:40 | NUR ---
hospice tray provided to the family, pt turned to left side and lines repositioned. family in room, pt with eyes open and moving around in bed. fuzzy flannel comfort blanket provided to pt. attends dry and family, pt have no needs. call light in reach.
[2024-05-04] MEDS ORDERED: PHARMACY RENAL DOSE ADJUSTMENT 1 DOSE MISC PO SCH (12:00)
--- NOTE | 2024-05-04 13:24 | NUR ---
sat with pt and family - am care, face washed pt non talkative. bp 71/44 hr 97, 94% ra. rr 23 resting with family at side. dr ferro here, new order to place keane cath for comfort care.
[2024-05-04] MEDS ORDERED: LIDOCAINE 2% VISCOUS 6 ML SYR TOP ONE (14:00)
--- NOTE | 2024-05-04 15:09 | NUR ---
PATIENT LIVES HOME ALONE. NO FAMILY IS ABLE TO STAY WITH HIM 24/ TO ASSIST WITH CARES FOR HIM TO GO HOME ON HOSPICE. DISCUSSED POTENTIAL PLACEMENT. FAMILY WOULD LIKE HIM TO STAY IN TOWN IF POSSIBLE. [facility] [place] COMPLETED AND SENT TO [place] REFERRAL SENT TO [facility]. DISCUSSED TRANSPORTATION OPTIONS WITH FAMILY, THEY PREFER TO USE LATITUDE TRANSPORT FROM [place] IF POSSIBLE.
--- NOTE | 2024-05-04 15:14 | NUR ---
SPOKE WITH DIONISIO AT [facility] AND INFORMED HER REFERRAL HAS BEEN SENT.
--- NOTE | 2024-05-04 17:11 | NUR ---
pt turned to left side and repositioned, family at side, keane emptied 200 ml urine.
--- NOTE | 2024-05-04 17:34 | NUR ---
Pt report received from SAVANAH Ramon at about 1720 hours. Pt transferred to /S room 109 by SAVANAH Ramon, this RN, and Shanda Killian, via bed. Pt is resting with eyes closed, positioned on his left side. IVF running TKO in IV in left arm. Pt does not respond to voice or touch. Family is at bedside. Pt does not squeeze fingers when directed to do so. Side rails up x4, family oriented to room and call light. Hospice cart in room and stocked.
[2024-05-04] MEDS ORDERED: CEFTRIAXONE/SODIUM CHLORIDE 2 GM/100 ML PIGGYBACK IV SCH (18:00)
--- NOTE | 2024-05-04 18:17 | NUR ---
Advised by family members that they were not aware that placing their father on comfort care meant that he would no longer receive any antibiotics for the UTI they were advised that he has. PC to Dr. Bonds who gave a verbal order to start ceftriaxone 2GM IV daily for 7 doses and stated that he will review this pt's chart more tonight and will speak with them in the morning. Updated family on Dr. Bonds's orders.
--- NOTE | 2024-05-04 18:58 | NUR ---
Advised pt's family of Dr. Bonds's order for abx and the pt now advises he will think about whether or not his father would want the abx. I advised him that the abx are not scheduled to start until 0900 tomorrow morning and to please let the nurse's know, before then, what he decides. Pt repositioned to his right side at this time after receiving 2mg IV MSO4 for discomfort.
--- NOTE | 2024-05-04 19:45 | NUR ---
BEDSIDE REPORT RECEIVED FROM OFFGOING RNADIA. PT RESTING IN BED WITH EYES CLOSED. PT DOES NOT WAKE DURING REPORT. PT'S SON AND DAUGHTER PRESENT AT BEDSIDE. QUESTIONS ANSWERED. FAMILY DENIES FURTHER NEEDS AT THIS TIME. CALL LIGHT IN REACH.
--- NOTE | 2024-05-04 21:44 | NUR ---
PT RESTING IN BED WITH EYES CLOSED. DISCUSSION WITH FAMILY PRESENT AT BEDSIDE REGARDING PT BEING PAINFUL DURING REPOSITIONING. PT'S DAUGHTER IS REQUESTING PT BE MEDICATED PRIOR TO TURNING. PRN ADMINISTERED, SEE EMAR. ASSESSMENT COMPLETE. HR IRREGULAR. BT'S HYPOACTIVE. RESTREPO CATH DRAINING CONCENTRATED YELLOW URINE. ATTENDS IN PLACE. CATH CARE PERFORMED. L IV FLUSHED WITH 10 ML NS. PATENT, WNL. PT REPOSITIONED, WAKES BRIEFLY DURING TURNING, QUICKLY FALLS BACK TO SLEEP. ORAL CARE PERFORMED. PT FAMILY DENY FURTHER NEEDS AT THIS TIME. CALL LIGHT IN REACH.
--- NOTE | 2024-05-04 22:48 | NUR ---
PT ROUNDING. PT RESTING IN BED WITH EYES CLOSED. RESPIRATIONS EVEN AND UNLABORED. PT'S DAUGHTER REQUESTING LOTION FOR PT'S ARMS. PROVIDED. OFFERED TO APPLY LOTION FOR DAUGHTER, SHE DECLINES, STATES THAT SHE WILL PERFORM ORAL CARE WELL. DENIES NEEDS AT THIS TIME. CALL LIGHT IN REACH.
--- NOTE | 2024-05-04 23:48 | NUR ---
PRN ADMINISTERED PRIOR TO TURNING AND CARES. PT REPOSITIONED TO L SIDE, PROPPED WITH PILLOWS. LEGS REPOSITIONED ON PILLOW. CHAPSTICK AND LOTION APPLIED. FAMILY REMAINS AT BEDSIDE. DENIES FURTHER NEEDS. CALL LIGHT IN REACH.
--- NOTE | 2024-05-05 01:35 | NUR ---
Patient repositioned for comfort. Admin morphine 2mg iv prior to repositioning per family's request. Patient's eyes remained closed, respirations non labored at this time. Family at bedside sleeping. Call light within reach.
--- NOTE | 2024-05-05 04:05 | NUR ---
Patient repositioned at this time, pillows redistributed for pressure relief. Admin morphine 2mg IV at this time for comfort, pt opened eyes briefly and moaned when he was repositioned. Family remains at bedside resting.
--- NOTE | 2024-05-05 06:25 | NUR ---
Patient repositioned at this time. Admin morphine 2mg iv for pain, flacc scale 4/10. Family remains at bedside, Personal supplies and call ligt within reach.
--- NOTE | 2024-05-05 07:18 | NUR ---
PT RESTING WITH EYES CLOSED, RESPIRATIONS EVEN AND UNLABORED. FAMILY IN ROOM ASLEEP.
[2024-05-05] MEDS ORDERED: CEFTRIAXONE/SODIUM CHLORIDE 2 GM/100 ML PIGGYBACK IV SCH (09:00)
--- NOTE | 2024-05-05 10:39 | NUR ---
PT RESTING IN BED WITH EYES CLOSED, RESPIRATIONS EVEN AND UNLABORED. FAMILY AT BEDSIDE. FAMILY CONSULTED REGARDING PLAN OF CARE NEEDS AND REQUESTS. FAMILY REQUESTS PT RECEIVES MORPHINE BEFORE REPOSITIONING. CARE TRAY REFRESHED AND IN ROOM.
--- NOTE | 2024-05-05 13:03 | NUR ---
PT "RESTING COMFORTABLY" PER FAMILY. MORPHINE GIVEN BEFORE REPOSITIONING PT PER FAMILY REQUEST. PT'S RESPIRATIONS EVEN AND UNLABORED. DAUGHTER AT BEDSIDE.
--- NOTE | 2024-05-05 15:32 | NUR ---
PT GIVEN MORPHINE AND REPOSITIONED FOR COMFORT. DAUGHTER AT BEDSIDE. ORAL CARE PERFORMED AND CHAPSTICK APPLIED.
--- NOTE | 2024-05-05 18:05 | NUR ---
PT PREMIDICATED BEFORE REPOSITIONING. PT'S DAUGHTER AND SON IN ROOM. PT'S DAUGHTER STATES HER DAD "SEEMS COMFORTABLE". NO REQUESTS AT THIS TIME. PT'S RESPIRATIONS EVEN AND UNLABORED.
--- NOTE | 2024-05-05 19:05 | NUR ---
RECIEVED REPORT FROM DAYSNCFT RN. PATIENT IN BED ON BACK WITH EYES CLOSED. PATIENT RESTING WITHOUT EVIDENCE OF DISTRESS. PATIENT ARMS AND LEGS FLOATING ON PILLOWS. RESPIRATIONS 16, NO ACUTE DISTRESS. FAMILY AT BEDSIDE, AGREE PATIENT APPEARS COMFORTABLE. FAMILY DENIES NEEDS AT THIS TIME. CARE CART FULL. CALL LIGHT IN REACH.
--- NOTE | 2024-05-05 20:11 | NUR ---
ADMIN MORPHINE 2MG IV AT THIS TIME FOR COMFORT.
--- NOTE | 2024-05-05 20:29 | NUR ---
TURNED PT TO RIGHT SIDE, PILLOWS IN USE
--- NOTE | 2024-05-05 23:53 | NUR ---
Pt repositioned at this time, pillows in use for comfort. Admin morphine 2mg iv prior to repostioning pt. Oral care provided. Patient warm to touch. Family remain at bedside.
--- NOTE | 2024-05-06 01:11 | NUR ---
IN ROOM TO ROUND ON PATIENT. PATIENT DEMONSTRATING AIR HUNGER, PRN MORPHINE ADMINISTERED, SEE E-MAR. PATIENT SLIGHTLY RESTLESS IN BED. PATIENT REMOVED CLOTHING. AGITATED, INTERMITTENTLY YELLING OUT. CONFUSED. PATIENT UNABLE TO REORIENT. RESTREPO REMAINS INTACT. IV INTACT. NO OTHER NEEDS IDENTIFIED AT THIS TIME. CALL LIGHT IN REACH. BED ALARM ACTIVE.
--- NOTE | 2024-05-06 03:20 | NUR ---
IN ROOM TO ROUND ON PATIENT. PATIENT RESTING IN BED ON BACK WITH EYES CLOSED. RESPIRATIONS 20, EVEN AND UNLABORED. NO NEEDS IDENTIFIED AT THIS TIME. CALL LIGHT IN REACH. FAMILY AT THE BEDSIDE.
--- NOTE | 2024-05-06 06:51 | NUR ---
PATIENT REPOSITIONED IN BED. PATIENT PAINFUL WITH MOVEMENT, PRN MEDICATION GIVEN PER ORDER. RESTREPO EMPTIED AND RESTREPO CARE COMPLETED. ORAL CARE COMPLETED. PATIENTS FACE WASHED. PATIENTS FAMILY AT BEDSIDE AND DENY ANY NEEDS. CALL LIGHT IN REACH.
--- NOTE | 2024-05-06 07:20 | NUR ---
Pt report received from RN Jone Little and Alverto Lind. Pt is resting with eyes closed, breathing sounds more labored from the last shift he was my patient ([phone] hours on 05/04), but even and regular, family at bedside. Pt's daughter states that the pt now has a fever. Encouraged pt to use call light if they have any needs or if the pt condition changes before I return to the room.
--- NOTE | 2024-05-06 07:37 | NUR ---
PATIENT IS ON COMFORT CARE, BOARD HAS BEEN UPDATED AND FAMILY IS IN THE ROOM. NO REQUEST AT THIS TIME.
--- NOTE | 2024-05-06 10:06 | NUR ---
In with pt for abx administration per emar, and pain med administration while turning and performing cath care. Pt skin is hot to the touch, temporal temp shows 103.8. Notified physician of pt's temp. MSO4, 2mg, administered slow IVP with pt care. Pt's respirations have increased and are sounding more labored. Repositioned pt to float to his left side, 2 RN skin assessment done at this time. Bottom appears slightly reddened but is blanchable, allyvn to left shoulder blade. Cath care performed by RN Debra Rizvi Sheet placed over pt for some warmth and explained to family that the pt has a fever and that I do not want to hold the heat in by placing heavier blankets on him. Pt family denies any needs at this time. Side rails up x3, family aware of call light location.
--- NOTE | 2024-05-06 12:36 | NUR ---
More family in with pt. Shelly Arriaga RN in with pt to administer 2mg IV MS04 for increased respirations (40bpm). Respirations currently down to 36bpm at this time, and slightly quieter (work of breathing is slightly better). Family denies any needs at this time. Call light available, hospice cart available.
[2024-05-06] MEDS ORDERED: MORPHINE SULFATE 4 MG/ML VIAL IV PRN (13:30)
--- NOTE | 2024-05-06 13:38 | NUR ---
PATIENT CONTINUES WITH RR OF 40/MIN AFTER 2 DOSES OF MS 2MG. MS DOSE ADVANCED TO 4MG Q15MP PER PROTOCOL. PATIENT SEEMS OTHERWISE COMFORTABLE, FAMILY IS IN ROOM.
--- NOTE | 2024-05-06 13:53 | NUR ---
Family is in the room, I offered water. No request at this time
--- NOTE | 2024-05-06 14:45 | NUR ---
In with pt for reassessment. Pt respirations are at 38bpm, labored. Pt repositioned at this time, oral care performed at this time. Family at bedside. 1mg IV Lorazepam administered per emar. Side rails up, call light available. Family denies needs at this time.
--- NOTE | 2024-05-06 16:47 | NUR ---
PC to Dr. Bonds to seek clarification on morphine for increased respirations and work of breathing for this pt. Verified that morphine should be held until/unless the pt is experiencing/expressing pain (verbally, grimacing, etc.).
--- NOTE | 2024-05-06 18:30 | NUR ---
In with pt to reposition, RN Rita in to help. Pt family at bedside, denies needs at this time. Pt respirations rapid at 38, leandro like, Dr. Bodns aware. Pt repositioned to his left side, pillows propped under upper extremities d/t dependent edema, between knees, ankles propped up on wash cloths for heel protection. Side rails up.
--- NOTE | 2024-05-06 19:05 | NUR ---
REPORT RECEIVED FROM SAVANAH CHEEK. pt RESTING IN BED ON LEFT SIDE, TACHYPNIC. FAMILY IN ROOM. DENY REQUESTS.
[2024-05-06] MEDS ORDERED: MORPHINE SULFATE 20 MG/ML SYR SL PRN (20:15)
--- NOTE | 2024-05-06 21:24 | NUR ---
RR 40. PRN MORPHINE AND ATIVAN ADMINISTERED. pt REPOSITIONED, FLOATING WITH PILLOWS UNDER HIPS. pt DOES NOT OPEN EYES WITH REPOSITIONING, NO FACIAL EXPRESSION CHANGE. ORAL CARE COMPLETE. CHAPSTICK APPLIED. RESTREPO CARE COMPLETE. FAMILY IN ROOM.
--- NOTE | 2024-05-06 23:11 | NUR ---
IN TO CHECK ON pt. RR 36. REPOSITIONED WITH PILLOW UNDER LEFT SHOULDER AND LEFT SIDE. NO FACIAL EXPRESSION WITH MOVEMENT. MOUTH SWAB PROVIDED. CALL LIGHT IN REACH.
--- NOTE | 2024-05-07 00:32 | NUR ---
pt TACHYPNIC, BREATHING MORE SHALLOW FROM PREVIOUS ASSESSMENT, BRIEF APNIC SPELLS NOTED. pt BREATHING CONGESTED SOUNDING. REPOSITIONED WITH PILLOW UNDER BOTH HIPS. FAMILY AT BEDSIDE, DENY ANY NEEDS.
--- NOTE | 2024-05-07 01:00 | NUR ---
CALL LIGHT ANSWERED. FAMILY REPORTS pt HAS PASSED. NO BREATHING, NO HEARTBEAT NOTED AFTER A MINUTE OF AUSCULTATION. [employer]ICAL LABORATORY MANAGER AND MD NOTIFIED.
--- NOTE | 2024-05-07 01:40 | NUR ---
MD TO FLOOR. PASTORAL CARE IN WITH pt AND FAMILY. FAMILY DENIES NEEDS.
--- NOTE | 2024-05-07 02:40 | NUR ---
pt OFF FLOOR WITH [facility] AND PASTORAL CARE. RESTREPO AND IV SITE REMOVED. PERSONAL SUPPLIES TO FAMILY.
--- NOTE | 2024-05-07 02:45 | NUR ---
LEE CALLED ME AT 1:00 TO INFORM ME OF PT . SON AND DAUGHTER WERE IN THE ROOM WHEN I ARRIVED. TALKED THEM THROUGH NEXT STEPS AND PROIVIDED PASTORAL CARE. CALLED [facility] TO HORSE SHOW JUDGE PT. FAMILY STAYED WITH PT UNTIL [facility] ARRIVED. TRANSFERED PT TO [facility] AT 2:25. FANMILY TOOK ALL PERSONAL BELONGINGS.
== END 2024-05-07 02:40 | DRG 871 ==
LOC: ED 14:26 → CCU 20:06 → MS 05-04 17:30
PROVIDERS: Emergency Medicine; ADMIT Family Medicine; ATTEND Family Medicine
PROC: 3E033XZ Introduction of Vasopressor into Peripheral Vein, Percutaneous Approach (ICD-10-PCS; 2024-05-03)
PROC: 3E03329 Introduction of Other Anti-infective into Peripheral Vein, Percutaneous Approach (ICD-10-PCS; 2024-05-04)
PROC: 0T9B70Z Drainage of Bladder with Drainage Device, Via Natural or Artificial Opening (ICD-10-PCS; principal; 2024-05-05)
DX: A41.9 Sepsis, unspecified organism (principal); R65.21 Severe sepsis with septic shock; N39.0 Urinary tract infection, site not specified; Z66 Do not resuscitate; F17.210 Nicotine dependence, cigarettes, uncomplicated; I48.91 Unspecified atrial fibrillation; R45.1 Restlessness and agitation; E11.9 Type 2 diabetes mellitus without complications; E87.6 Hypokalemia; E83.42 Hypomagnesemia; Z51.5 Encounter for palliative care; B96.20 Unspecified Escherichia coli [E. coli] as the cause of diseases classified elsewhere; E80.6 Other disorders of bilirubin metabolism; D63.8 Anemia in other chronic diseases classified elsewhere; J98.4 Other disorders of lung; F10.11 Alcohol abuse, in remission; Z91.018 Allergy to other foods; Z91.011 Allergy to milk products; Z87.19 Personal history of other diseases of the digestive system; Z98.890 Other specified postprocedural states; Z83.3 Family history of diabetes mellitus; Z88.8 Allergy status to other drugs, medicaments and biological substances; Z79.899 Other long term (current) drug therapy
CPT/HCPCS: 36415; 51701; 51798; 71045; 71250; 74177; 80053; 80074; 81001; 82248; 82607; 83550; 83605; 83690; 83735; 84100; 84153; 85025; 86850; 86900; 86901; 87088; 87186; 93005; 93010; 99285-25; A9270; G0103; J0456; J0612; J0696; J2060; J2270; J3475; J3480; J7030; J7060; Q9967